=== PATIENT | female | born 1965 | race Caucasian/White ===

== ENCOUNTER → 2018-02-20 | Outpatient (CLI) | payer OTHER ==
[~2018-02-20] MED LIST: ACET325 PO; AMOX500 PO; Budeprion Sr150 MG; Clotrimazole AF30 GM TOP; FEXPSEER PO; FLONASE ALLERG9.9 ML; FURO20 PO; HYDR1TAB94 PO; LOSARTAN POTAS100 MG PO; METF500 PO; MONT10T PO; MUPI1NAS; NORT25 PO; Norco 5-325 Ta1 EACH PO; Omeprazole20 M1 PO; POTCHL10ER PO; POTCHL20ER PO; Percocet 5-3251 EACH PO; Prozac20 MG PO; Prozac40 MG PO; XARELTO10 MG PO; ZOLP5 PO
== END ==
LOC: LAB SHORT 08:10 → LAB 08:10
DX: N39.0 Urinary tract infection, site not specified (principal)
CPT/HCPCS: 87077; 87086; 87186

== ENCOUNTER 2018-05-23 17:05 | Emergency (ER) | payer OTHER ==
[~2018-05-23] VITALS: Ht 172.7 cm; Wt 136.1 kg
[2018-05-23 18:53] LABS: BASOPHILS ABSOLUTE AUTO 0.02 K/mm3 (0.00-0.23); BASOPHILS PERCENT AUTO 0 % (0-2); EOSINOPHILS ABSOLUTE AUTO 0.03 K/mm3 (0.00-0.68); EOSINOPHILS PERCENT AUTO 0 % (0-6); Hematocrit 42.6 % (33.0-51.0); Hemoglobin 14.6 g/dL (11.5-16.0); IMMATURE GRAN ABSOLUTE AUTO 0.05 K/mm3 (0.00-0.10); IMMATURE GRAN PERCENT AUTO 1 % (0-1); LYMPHOCYTES ABSOLUTE AUTO 0.78 K/mm3 (0.84-5.20); LYMPHOCYTES PERCENT AUTO 11 % (21-46); MONOCYTES ABSOLUTE AUTO 0.36 K/mm3 (0.16-1.47); MONOCYTES PERCENT AUTO 5 % (4-13); Mean Corpuscular HGB 29.1 pg (26.0-34.0); Mean Corpuscular HGB Conc 34.3 g/dL (31.5-36.5); Mean Corpuscular Volume 85 fL (80-100); Mean Platelet Volume 9.4 fL (9.1-12.4); NEUTROPHILS ABSOLUTE AUTO 6.19 K/mm3 (1.96-9.15); NEUTROPHILS PERCENT AUTO 83 % (41-73); Platelet Count 179 K/mm3 (150-400); RDW Coefficient Variation 12.8 % (11.7-14.2); RDW Standard Deviation 39.3 fL (35.1-46.3); Red Blood Cell Count 5.02 M/mm3 (3.80-5.20); White Blood Cell Count 7.43 K/mm3 (4.00-11.30)
[2018-05-23] MEDS ORDERED: ERGO400 PO (19:03)
[2018-05-23] MEDS ORDERED: FLUO10 PO (19:03)
[2018-05-23] MEDS ORDERED: AMLO10 PO (19:03)
[2018-05-23 19:12] LABS: Alanine Aminotransfer (ALT/SGP 49 U/L (12-78); Albumin, Blood 3.5 g/dL (3.4-5.0); Albumin/Globulin Ratio 0.8 (0.8-1.8); Alk Phos 86 U/L (50-136); Anion Gap 11 mmol/L (6-16); Aspartate Aminotrans (AST/SGOT 39 U/L (12-37); Bilirubin, Total 1.1 mg/dL (0.1-1.0); Blood Urea Nitrogen 20 mg/dL (8-24); Bun/Creatinine Ratio 24.4 (12.0-20.0); CO2, Blood 21 mmol/L (21-32); Calcium, Blood 8.9 mg/dL (8.5-10.1); Chloride, Blood 106 mmol/L (98-108); Creatinine, Blood 0.82 mg/dL (0.40-1.00); Globulin, Blood 4.6 g/dL (2.2-4.0); Glomerular Filtration Rate >60 (60-); Glucose, Blood 140 mg/dL (70-99); Potassium, Blood 3.9 mmol/L (3.5-5.5); Sodium, Blood 138 mmol/L (136-145); Total Protein, Blood 8.1 g/dL (6.4-8.2)
[2018-05-23 19:46] LABS: Source, Urine Clean Catch
[2018-05-23 19:59] LABS: Blood, Urine Neg (Neg); Glucose Qualitative, Urine Neg (Neg); Ketones, Urine 1+ (Neg); Leukocyte Esterase, Urine 2+ (Neg); Nitrite, Urine Neg (Neg); Protein, Urine 1+ (Neg); Specific Gravity, Urine 1.015 (1.003-1.022); Urobilinogen, Urine 2+ (Normal)
[2018-05-23] MEDS ORDERED: Lomotil Tablet1 EACH PO (20:20)
[2018-05-23] MEDS ORDERED: Zofran Odt8 MG SL (20:20)
[2018-05-23] MEDS ORDERED: Flagyl500 MG PO (20:20)
[2018-05-23 20:26] LABS: Appearance, Urine Hazy (Clear); Bilirubin, Urine 1+ (Neg); Color, Urine Yellow (P-Yellow)
[2018-05-23 20:49] LABS: Bacteria Few /hpf; Mucus Light (0-Heavy); Red Blood Cells, Urine Not Seen /hpf (0-2); Squamous Epithelial Cells Few /hpf (Few)
== END 2018-05-23 21:04 | disposition home or self-care (01) ==
LOC: ER 17:05
PROVIDERS: Emergency Medicine
DX: K52.9 Noninfective gastroenteritis and colitis, unspecified (principal); E66.01 Morbid (severe) obesity due to excess calories; I13.0 Hypertensive heart and chronic kidney disease with heart failure and stage 1 through stage 4 chronic kidney disease, or unspecified chronic kidney disease; I50.30 Unspecified diastolic (congestive) heart failure; N18.9 Chronic kidney disease, unspecified; J45.909 Unspecified asthma, uncomplicated
CPT/HCPCS: 36415; 80053; 81001; 83690; 85025; 87086; 96374; 99283-25; J2405

== ENCOUNTER 2019-01-06 09:45 | Day surgery (SDC) | payer OTHER ==
[~2019-01-06] VITALS: Ht 170.2 cm; Wt 141.5 kg
[~2019-01-06 09:45] MED LIST changes: +AMLO10 PO; +ERGO400 PO; +FLUO10 PO; +Flagyl500 MG PO; +Lomotil Tablet1 EACH PO; +Zofran Odt8 MG SL
[2019-01-06] MEDS ORDERED: CARV3.125 (10:31)
[2019-01-06] MEDS ORDERED: GLIP5 (10:32)
== END 2019-01-06 12:35 | disposition home or self-care (01) ==
LOC: ORSCSDS 09:45
PROVIDERS: Surgery
PROC: 0DBM8ZX Excision of Descending Colon, Via Natural or Artificial Opening Endoscopic, Diagnostic (ICD-10-PCS; principal; 2019-01-06 11:00)
PROC: 0DBP8ZX Excision of Rectum, Via Natural or Artificial Opening Endoscopic, Diagnostic (ICD-10-PCS; principal; 2019-01-06 11:00)
PROC: 0DBN8ZX Excision of Sigmoid Colon, Via Natural or Artificial Opening Endoscopic, Diagnostic (ICD-10-PCS; principal; 2019-01-06 11:00)
DX: Z12.11 Encounter for screening for malignant neoplasm of colon (principal); D12.4 Benign neoplasm of descending colon; K63.5 Polyp of colon; K62.1 Rectal polyp; Z86.010 Personal history of colon polyps; Z87.891 Personal history of nicotine dependence; I12.9 Hypertensive chronic kidney disease with stage 1 through stage 4 chronic kidney disease, or unspecified chronic kidney disease; E11.22 Type 2 diabetes mellitus with diabetic chronic kidney disease; N18.3 Chronic kidney disease, stage 3 (moderate); F32.9 Major depressive disorder, single episode, unspecified; G47.33 Obstructive sleep apnea (adult) (pediatric); Z79.84 Long term (current) use of oral hypoglycemic drugs; Z79.899 Other long term (current) drug therapy
CPT/HCPCS: 82947; 88305; J2704; J7120

== ENCOUNTER → 2020-05-18 | Outpatient (CLI) | payer OTHER ==
[~2020-05-18] MED LIST changes: +BUPR150ER PO; -Budeprion Sr150 MG; +CARV3.125; +GLIP5
== END | disposition home or self-care (01) ==
LOC: LAB SHORT 15:15 → LAB 15:15
DX: N39.0 Urinary tract infection, site not specified (principal)
CPT/HCPCS: 87077; 87086; 87186

== ENCOUNTER → 2020-11-23 | Outpatient (CLI) | payer OTHER ==
[2020-11-24 17:37] LABS: Appearance, Urine Clear (Clear); Bilirubin, Urine Neg (Neg); Blood, Urine Neg (Neg); Color, Urine Amber (P-Yellow); Glucose Qualitative, Urine 2+ (Neg); Ketones, Urine 1+ (Neg); Leukocyte Esterase, Urine 3+ (Neg); Nitrite, Urine Neg (Neg); Protein, Urine Neg (Neg); Specific Gravity, Urine 1.025 (1.003-1.022); Urobilinogen, Urine NORM (Normal)
[2020-11-24 18:05] LABS: Bacteria Mod /hpf; Red Blood Cells, Urine 0-2 /hpf (0-2); Squamous Epithelial Cells Few /hpf (Few); White Blood Cells, Urine 50-100 /hpf (0-5)
== END | disposition home or self-care (01) ==
LOC: LAB 16:30 → LAB SHORT 16:30
PROVIDERS: Family Medicine
DX: N39.0 Urinary tract infection, site not specified (principal)
CPT/HCPCS: 81001; 87077; 87086; 87186

== ENCOUNTER → 2021-03-18 | Outpatient (CLI) | payer OTHER | END | disposition home or self-care (01) | LOC: LAB 09:30 → LAB SHORT 09:30 | DX: R82.90 Unspecified abnormal findings in urine (principal) | CPT/HCPCS: 87086 ==

== ENCOUNTER → 2021-06-29 | Outpatient (CLI) | payer OTHER ==
[2021-06-29 14:03] LABS: Source, Urine Clean Catch
[2021-06-29 15:19] LABS: Appearance, Urine Cloudy (Clear); Bilirubin, Urine Neg (Neg); Blood, Urine 1+ (Neg); Color, Urine Yellow (P-Yellow); Glucose Qualitative, Urine Neg (Neg); Ketones, Urine Neg (Neg); Leukocyte Esterase, Urine 3+ (Neg); Nitrite, Urine Pos (Neg); Protein, Urine 2+ (Neg); Specific Gravity, Urine 1.025 (1.003-1.022); Urobilinogen, Urine NORM (Normal)
[2021-06-29 16:18] LABS: Bacteria Many /hpf; Calcium Oxalate Crystals Few /hpf; Red Blood Cells, Urine 0-2 /hpf (0-2); Squamous Epithelial Cells Rare /hpf (Few); White Blood Cells, Urine Rare /hpf (0-5)
== END | disposition home or self-care (01) ==
LOC: LAB SHORT 14:01 → LAB 14:01
PROVIDERS: Internal Medicine
DX: R35.0 Frequency of micturition (principal)
CPT/HCPCS: 81001; 87077; 87086; 87186

== ENCOUNTER 2021-11-02 15:37 | Emergency (ER) | payer OTHER ==
[~2021-11-02] VITALS: Ht 172.7 cm; Wt 147.4 kg
[2021-11-02 16:21] LABS: BASOPHILS ABSOLUTE AUTO 0.02 K/mm3 (0.00-0.23); BASOPHILS PERCENT AUTO 0 % (0-2); EOSINOPHILS ABSOLUTE AUTO 0.04 K/mm3 (0.00-0.68); EOSINOPHILS PERCENT AUTO 1 % (0-6); Hematocrit 23.4 % (33.0-51.0); IMMATURE GRAN ABSOLUTE AUTO 0.02 K/mm3 (0.00-0.10); IMMATURE GRAN PERCENT AUTO 0 % (0-1); LYMPHOCYTES ABSOLUTE AUTO 0.85 K/mm3 (0.84-5.20); LYMPHOCYTES PERCENT AUTO 18 % (21-46); MONOCYTES ABSOLUTE AUTO 0.45 K/mm3 (0.16-1.47); MONOCYTES PERCENT AUTO 10 % (4-13); Mean Corpuscular HGB 23.6 pg (26.0-34.0); Mean Corpuscular HGB Conc 29.9 g/dL (31.5-36.5); Mean Corpuscular Volume 79 fL (80-100); Mean Platelet Volume 9.7 fL (9.1-12.4); NEUTROPHILS ABSOLUTE AUTO 3.37 K/mm3 (1.96-9.15); NEUTROPHILS PERCENT AUTO 71 % (41-73); Platelet Count 165 K/mm3 (150-400); RDW Coefficient Variation 15.3 % (11.7-14.2); RDW Standard Deviation 44.1 fL (35.1-46.3); Red Blood Cell Count 2.96 M/mm3 (3.80-5.20); White Blood Cell Count 4.75 K/mm3 (4.00-11.30)
[2021-11-02 16:32] LABS: Albumin, Blood 3.2 g/dL (3.4-5.0); Albumin/Globulin Ratio 0.8 (0.8-1.8); Bilirubin, Total 0.5 mg/dL (0.1-1.0); Calcium, Blood 8.8 mg/dL (8.5-10.1); Creatinine, Blood 1.11 mg/dL (0.40-1.00); Globulin, Blood 3.9 g/dL (2.2-4.0); Potassium, Blood 3.8 mmol/L (3.5-5.5); Total Protein, Blood 7.1 g/dL (6.4-8.2)
[2021-11-02 16:33] LABS: Percent Saturation 3.5 % (15.0-50.0)
[2021-11-02] MEDS ORDERED: HUMALOG KW100 UNIT/1 SC (18:39)
[2021-11-02] MEDS ORDERED: BASAGLAR K100 UNIT/1 SC (18:40)
== END 2021-11-02 22:05 | disposition home or self-care (01) ==
LOC: ER 15:37
PROVIDERS: Physician Assistant
DX: D64.9 Anemia, unspecified (principal); I13.0 Hypertensive heart and chronic kidney disease with heart failure and stage 1 through stage 4 chronic kidney disease, or unspecified chronic kidney disease; N18.9 Chronic kidney disease, unspecified; I50.30 Unspecified diastolic (congestive) heart failure; Z87.891 Personal history of nicotine dependence; E11.22 Type 2 diabetes mellitus with diabetic chronic kidney disease; Z79.84 Long term (current) use of oral hypoglycemic drugs; Z79.899 Other long term (current) drug therapy; Z91.040 Latex allergy status; Z88.8 Allergy status to other drugs, medicaments and biological substances; Z88.5 Allergy status to narcotic agent; Z91.013 Allergy to seafood
CPT/HCPCS: 36415; 36430; 80053; 83540; 83550; 85025; 86850; 86900; 86901; 86923; 96365; 99284-25; J1750; J7030; P9016

== ENCOUNTER 2021-11-08 19:27 | Emergency (ER) | payer OTHER ==
[~2021-11-08] VITALS: Ht 172.7 cm; Wt 147.4 kg
[~2021-11-08 19:27] MED LIST changes: +BASAGLAR K100 UNIT/1 SC; -CARV3.125; +CARV3.125 PO; -GLIP5; +GLIP5 PO; +HUMALOG KW100 UNIT/1 SC
[2021-11-08 20:03] LABS: BASOPHILS ABSOLUTE AUTO 0.02 K/mm3 (0.00-0.23); BASOPHILS PERCENT AUTO 0 % (0-2); EOSINOPHILS ABSOLUTE AUTO 0.03 K/mm3 (0.00-0.68); EOSINOPHILS PERCENT AUTO 1 % (0-6); Hemoglobin 7.5 g/dL (11.5-16.0); IMMATURE GRAN ABSOLUTE AUTO 0.02 K/mm3 (0.00-0.10); IMMATURE GRAN PERCENT AUTO 0 % (0-1); LYMPHOCYTES ABSOLUTE AUTO 0.86 K/mm3 (0.84-5.20); LYMPHOCYTES PERCENT AUTO 17 % (21-46); MONOCYTES ABSOLUTE AUTO 0.52 K/mm3 (0.16-1.47); MONOCYTES PERCENT AUTO 11 % (4-13); Mean Corpuscular HGB 23.6 pg (26.0-34.0); Mean Corpuscular Volume 79 fL (80-100); Mean Platelet Volume 10.1 fL (9.1-12.4); NEUTROPHILS ABSOLUTE AUTO 3.49 K/mm3 (1.96-9.15); NEUTROPHILS PERCENT AUTO 71 % (41-73); Platelet Count 167 K/mm3 (150-400); RDW Coefficient Variation 16.2 % (11.7-14.2); RDW Standard Deviation 46.7 fL (35.1-46.3); Red Blood Cell Count 3.18 M/mm3 (3.80-5.20); White Blood Cell Count 4.94 K/mm3 (4.00-11.30)
[2021-11-08 20:35] LABS: Albumin, Blood 3.1 g/dL (3.4-5.0); Albumin/Globulin Ratio 0.8 (0.8-1.8); Bilirubin, Total 0.5 mg/dL (0.1-1.0); Calcium, Blood 8.8 mg/dL (8.5-10.1); Creatinine, Blood 1.09 mg/dL (0.40-1.00); Globulin, Blood 4.1 g/dL (2.2-4.0); Potassium, Blood 3.7 mmol/L (3.5-5.5); Total Protein, Blood 7.2 g/dL (6.4-8.2)
== END 2021-11-08 21:32 | disposition home or self-care (01) ==
LOC: ER 19:27
PROVIDERS: Physician Assistant
DX: D50.9 Iron deficiency anemia, unspecified (principal); E11.22 Type 2 diabetes mellitus with diabetic chronic kidney disease; I13.0 Hypertensive heart and chronic kidney disease with heart failure and stage 1 through stage 4 chronic kidney disease, or unspecified chronic kidney disease; N18.9 Chronic kidney disease, unspecified; I50.30 Unspecified diastolic (congestive) heart failure; Z87.891 Personal history of nicotine dependence; Z79.899 Other long term (current) drug therapy; Z91.040 Latex allergy status; Z88.2 Allergy status to sulfonamides; Z88.8 Allergy status to other drugs, medicaments and biological substances
CPT/HCPCS: 36415; 80053; 82272; 85025; 86850; 86900; 86901; 99285

== ENCOUNTER 2021-11-16 00:15 | Day surgery (SDC) | payer OTHER ==
[2021-11-14 15:20] LABS: BASOPHILS ABSOLUTE AUTO 0.02 K/mm3 (0.00-0.23); BASOPHILS PERCENT AUTO 1 % (0-2); EOSINOPHILS ABSOLUTE AUTO 0.05 K/mm3 (0.00-0.68); EOSINOPHILS PERCENT AUTO 1 % (0-6); Hematocrit 26.4 % (33.0-51.0); Hemoglobin 7.7 g/dL (11.5-16.0); IMMATURE GRAN ABSOLUTE AUTO 0.01 K/mm3 (0.00-0.10); IMMATURE GRAN PERCENT AUTO 0 % (0-1); LYMPHOCYTES ABSOLUTE AUTO 0.75 K/mm3 (0.84-5.20); LYMPHOCYTES PERCENT AUTO 18 % (21-46); MONOCYTES ABSOLUTE AUTO 0.42 K/mm3 (0.16-1.47); MONOCYTES PERCENT AUTO 10 % (4-13); Mean Corpuscular HGB 22.9 pg (26.0-34.0); Mean Corpuscular HGB Conc 29.2 g/dL (31.5-36.5); Mean Corpuscular Volume 79 fL (80-100); Mean Platelet Volume 9.8 fL (9.1-12.4); NEUTROPHILS ABSOLUTE AUTO 2.86 K/mm3 (1.96-9.15); NEUTROPHILS PERCENT AUTO 70 % (41-73); Platelet Count 162 K/mm3 (150-400); RDW Coefficient Variation 17.2 % (11.7-14.2); RDW Standard Deviation 49.1 fL (35.1-46.3); Red Blood Cell Count 3.36 M/mm3 (3.80-5.20); White Blood Cell Count 4.11 K/mm3 (4.00-11.30)
== END 2021-11-16 09:40 | disposition home or self-care (01) ==
LOC: ATC 00:15
PROVIDERS: Family Medicine
DX: D50.9 Iron deficiency anemia, unspecified (principal); I48.91 Unspecified atrial fibrillation; K74.60 Unspecified cirrhosis of liver
CPT/HCPCS: 36430; 85025; 86850; 86900; 86901; 86923; 96365; J2916; J7050; P9016

== ENCOUNTER 2021-11-19 08:55 | Day surgery (SDC) | payer OTHER | END 2021-11-19 10:10 | disposition home or self-care (01) | LOC: ATC 08:55 | DX: D50.9 Iron deficiency anemia, unspecified (principal); I13.0 Hypertensive heart and chronic kidney disease with heart failure and stage 1 through stage 4 chronic kidney disease, or unspecified chronic kidney disease; E11.22 Type 2 diabetes mellitus with diabetic chronic kidney disease; N18.9 Chronic kidney disease, unspecified; I50.30 Unspecified diastolic (congestive) heart failure; J45.909 Unspecified asthma, uncomplicated; Z87.891 Personal history of nicotine dependence; Z79.84 Long term (current) use of oral hypoglycemic drugs; Z88.8 Allergy status to other drugs, medicaments and biological substances; Z88.6 Allergy status to analgesic agent; Z91.040 Latex allergy status; Z88.5 Allergy status to narcotic agent; Z91.013 Allergy to seafood | CPT/HCPCS: J2916 ==

== ENCOUNTER 2021-11-24 02:46 | Day surgery (SDC) | payer OTHER ==
[~2021-11-24 02:46] MED LIST changes: +OMEP20ER PO; -Omeprazole20 M1 PO
[2021-11-30] MEDS ORDERED: ALBU90OI INH (10:42)
[2021-11-30] MEDS ORDERED: Amlodipine Bes2.5 MG PO (10:43)
[2021-11-30] MEDS ORDERED: VITAMIN B125000 MC1 PO (10:44)
[2021-11-30] MEDS ORDERED: BECL25NI INH (10:44)
[2021-11-30] MEDS ORDERED: ATOR10 PO (10:44)
[2021-11-30] MEDS ORDERED: AMOX500 PO (10:44)
[2021-11-30] MEDS ORDERED: FERSU300 PO (10:45)
[2021-11-30] MEDS ORDERED: INSULANPEN SC (10:45)
[2021-11-30] MEDS ORDERED: DOCU100 PO (10:45)
[2021-11-30] MEDS ORDERED: HUMALOG KW200 UNIT/2 SC (10:46)
[2021-11-30] MEDS ORDERED: LOSA50 PO (10:47)
[2021-11-30] MEDS ORDERED: XARELTO20 MG PO (10:51)
[2021-12-25] MEDS ORDERED: CEPH500 PO (05:12)
[2021-12-25] MEDS ORDERED: SULTRIDS PO (05:12)
[2021-12-25] MEDS ORDERED: Cleocin HCl150 MG PO (05:25)
[2022-01-16] MEDS ORDERED: AMLO5 PO ×2 (15:19)
[2022-01-16] MEDS ORDERED: ATOR10 PO (15:20)
[2022-01-16] MEDS ORDERED: METF500 PO (15:21)
[2022-01-16] MEDS ORDERED: VITAMIN D3 PO (15:23)
[2022-01-16] MEDS ORDERED: Flonase 0.05% N16 GM (15:24)
[2022-01-16] MEDS ORDERED: FURO20 PO (15:24)
[2022-01-16] MEDS ORDERED: INSULANPEN SC (15:25)
[2022-01-16] MEDS ORDERED: GLUCOTROL5 MG PO (15:25)
[2022-01-16] MEDS ORDERED: HUMALOG100 UNIT/1 SC (15:26)
[2022-01-18] MEDS ORDERED: LOSA25 PO (10:05)
== END 2021-11-24 15:22 | disposition home or self-care (01) ==
LOC: ATC 02:46
DX: D50.9 Iron deficiency anemia, unspecified (principal); I13.0 Hypertensive heart and chronic kidney disease with heart failure and stage 1 through stage 4 chronic kidney disease, or unspecified chronic kidney disease; I50.30 Unspecified diastolic (congestive) heart failure; E11.22 Type 2 diabetes mellitus with diabetic chronic kidney disease; N18.9 Chronic kidney disease, unspecified; D63.1 Anemia in chronic kidney disease; J45.909 Unspecified asthma, uncomplicated; Z87.891 Personal history of nicotine dependence; Z79.4 Long term (current) use of insulin
CPT/HCPCS: 96365; J2916

== ENCOUNTER 2022-01-01 01:00 | Day surgery (SDC) | payer OTHER ==
[~2022-01-01 01:00] MED LIST changes: +ALBU90OI INH; +ATOR10 PO; +Amlodipine Bes2.5 MG PO; +BECL25NI INH; +CEPH500 PO; +Cleocin HCl150 MG PO; +DOCU100 PO; +FERSU300 PO; +HUMALOG KW200 UNIT/2 SC; +INSULANPEN SC; +LOSA50 PO; +SULTRIDS PO; +VITAMIN B125000 MC1 PO; +XARELTO20 MG PO
[2022-01-01] MEDS ORDERED: BUME2 PO (13:26)
== END 2022-01-01 14:50 | disposition home or self-care (01) ==
LOC: ATC 01:00
DX: D50.9 Iron deficiency anemia, unspecified (principal); I48.91 Unspecified atrial fibrillation; K74.60 Unspecified cirrhosis of liver; N18.9 Chronic kidney disease, unspecified; E11.22 Type 2 diabetes mellitus with diabetic chronic kidney disease; I13.0 Hypertensive heart and chronic kidney disease with heart failure and stage 1 through stage 4 chronic kidney disease, or unspecified chronic kidney disease; I50.32 Chronic diastolic (congestive) heart failure; J45.909 Unspecified asthma, uncomplicated; Z98.84 Bariatric surgery status; Z88.6 Allergy status to analgesic agent; Z88.5 Allergy status to narcotic agent; Z88.8 Allergy status to other drugs, medicaments and biological substances; Z91.040 Latex allergy status; Z91.013 Allergy to seafood; Z87.891 Personal history of nicotine dependence
CPT/HCPCS: 36415; 36430; 86850; 86900; 86901; 86923; J7040; P9016

== ENCOUNTER 2022-01-08 01:11 | Day surgery (SDC) | payer OTHER ==
[~2022-01-08 01:11] MED LIST changes: +BUME2 PO
--- NOTE | 2022-01-08 09:00 | NUR ---
ANA BLOOD FROM [facility]. DISCARDED 5CC OF BLOOD AND WITHDREW 7CC FOR LABS.
[2022-01-08 10:13] LABS: BASOPHILS ABSOLUTE AUTO 0.02 K/mm3 (0.00-0.23); BASOPHILS PERCENT AUTO 0 % (0-2); EOSINOPHILS ABSOLUTE AUTO 0.08 K/mm3 (0.00-0.68); EOSINOPHILS PERCENT AUTO 2 % (0-6); Hematocrit 28.9 % (33.0-51.0); Hemoglobin 8.8 g/dL (11.5-16.0); IMMATURE GRAN ABSOLUTE AUTO 0.03 K/mm3 (0.00-0.10); IMMATURE GRAN PERCENT AUTO 1 % (0-1); LYMPHOCYTES PERCENT AUTO 20 % (21-46); MONOCYTES ABSOLUTE AUTO 0.58 K/mm3 (0.16-1.47); MONOCYTES PERCENT AUTO 12 % (4-13); Mean Corpuscular HGB 23.3 pg (26.0-34.0); Mean Corpuscular HGB Conc 30.4 g/dL (31.5-36.5); Mean Corpuscular Volume 77 fL (80-100); Mean Platelet Volume 9.7 fL (9.1-12.4); NEUTROPHILS PERCENT AUTO 66 % (41-73); Platelet Count 159 K/mm3 (150-400); RDW Coefficient Variation 18.7 % (11.7-14.2); RDW Standard Deviation 52.3 fL (35.1-46.3); Red Blood Cell Count 3.77 M/mm3 (3.80-5.20); White Blood Cell Count 5.01 K/mm3 (4.00-11.30)
== END 2022-01-08 10:10 | disposition home or self-care (01) ==
LOC: ATC 01:11
PROVIDERS: Family Medicine
DX: D50.9 Iron deficiency anemia, unspecified (principal); I12.9 Hypertensive chronic kidney disease with stage 1 through stage 4 chronic kidney disease, or unspecified chronic kidney disease; N18.31 Chronic kidney disease, stage 3a; D63.1 Anemia in chronic kidney disease; E78.5 Hyperlipidemia, unspecified; E11.22 Type 2 diabetes mellitus with diabetic chronic kidney disease; G47.33 Obstructive sleep apnea (adult) (pediatric); E66.01 Morbid (severe) obesity due to excess calories; K21.9 Gastro-esophageal reflux disease without esophagitis; K75.81 Nonalcoholic steatohepatitis (NASH); K74.60 Unspecified cirrhosis of liver; R18.8 Other ascites; K76.6 Portal hypertension; K31.89 Other diseases of stomach and duodenum; I48.91 Unspecified atrial fibrillation; Z98.84 Bariatric surgery status; Z79.01 Long term (current) use of anticoagulants
CPT/HCPCS: 85025; J2916

== ENCOUNTER → 2022-01-09 | Outpatient (CLI) | payer OTHER ==
[2022-01-09 16:30] LABS: Appearance, Urine Hazy (Clear); Bilirubin, Urine Neg (Neg); Blood, Urine 1+ (Neg); Color, Urine Yellow (P-Yellow); Glucose Qualitative, Urine Neg (Neg); Ketones, Urine Neg (Neg); Leukocyte Esterase, Urine 3+ (Neg); Nitrite, Urine Neg (Neg); Protein, Urine Neg (Neg); Specific Gravity, Urine 1.015 (1.003-1.022); Urobilinogen, Urine NORM (Normal)
[2022-01-09 16:54] LABS: Renal Epithelial Rare /hpf (0-Rare); Squamous Epithelial Cells Many /hpf (Few); Transitional Epithelial Cells Few /hpf (0-Rare)
[2022-01-09 16:55] LABS: Bacteria Many /hpf; White Blood Cells, Urine 25-50 /hpf (0-5)
== END ==
LOC: LAB SHORT 14:00 → LAB 14:00
PROVIDERS: Nurse Practitioner Family
DX: N39.0 Urinary tract infection, site not specified (principal)
CPT/HCPCS: 81001

== ENCOUNTER 2022-01-12 00:14 | Day surgery (SDC) | payer OTHER | END 2022-01-12 09:33 | disposition home or self-care (01) | LOC: ATC 00:14 | DX: D50.9 Iron deficiency anemia, unspecified (principal); I12.9 Hypertensive chronic kidney disease with stage 1 through stage 4 chronic kidney disease, or unspecified chronic kidney disease; N18.9 Chronic kidney disease, unspecified; D63.1 Anemia in chronic kidney disease; K75.81 Nonalcoholic steatohepatitis (NASH); R18.8 Other ascites; K76.6 Portal hypertension; K31.89 Other diseases of stomach and duodenum; E11.22 Type 2 diabetes mellitus with diabetic chronic kidney disease; I48.91 Unspecified atrial fibrillation; Z79.4 Long term (current) use of insulin; Z79.899 Other long term (current) drug therapy; Z87.891 Personal history of nicotine dependence | CPT/HCPCS: 96365; J2916 ==

== ENCOUNTER 2022-01-15 01:43 | Day surgery (SDC) | payer OTHER ==
--- NOTE | 2022-01-15 08:20 | NUR ---
POWERGLIDE NOT DRAWING BACK BLOOD. PERIPHERAL DRAW FOR TODAY'S LABS.
[2022-01-15 08:59] LABS: BASOPHILS ABSOLUTE AUTO 0.02 K/mm3 (0.00-0.23); BASOPHILS PERCENT AUTO 0 % (0-2); EOSINOPHILS ABSOLUTE AUTO 0.08 K/mm3 (0.00-0.68); EOSINOPHILS PERCENT AUTO 2 % (0-6); IMMATURE GRAN ABSOLUTE AUTO 0.02 K/mm3 (0.00-0.10); IMMATURE GRAN PERCENT AUTO 0 % (0-1); LYMPHOCYTES ABSOLUTE AUTO 0.81 K/mm3 (0.84-5.20); LYMPHOCYTES PERCENT AUTO 17 % (21-46); MONOCYTES ABSOLUTE AUTO 0.51 K/mm3 (0.16-1.47); MONOCYTES PERCENT AUTO 11 % (4-13); Mean Corpuscular HGB 23.4 pg (26.0-34.0); Mean Corpuscular Volume 78 fL (80-100); Mean Platelet Volume 9.7 fL (9.1-12.4); NEUTROPHILS ABSOLUTE AUTO 3.34 K/mm3 (1.96-9.15); NEUTROPHILS PERCENT AUTO 70 % (41-73); Platelet Count 134 K/mm3 (150-400); RDW Coefficient Variation 19.1 % (11.7-14.2); RDW Standard Deviation 54.2 fL (35.1-46.3); Red Blood Cell Count 3.85 M/mm3 (3.80-5.20); White Blood Cell Count 4.78 K/mm3 (4.00-11.30)
[2022-01-16] MEDS ORDERED: AMLO5 PO ×2 (15:19)
[2022-01-16] MEDS ORDERED: ATOR10 PO (15:20)
[2022-01-16] MEDS ORDERED: METF500 PO (15:21)
[2022-01-16] MEDS ORDERED: VITAMIN D3 PO (15:23)
[2022-01-16] MEDS ORDERED: FURO20 PO (15:24)
[2022-01-16] MEDS ORDERED: Flonase 0.05% N16 GM (15:24)
[2022-01-16] MEDS ORDERED: GLUCOTROL5 MG PO (15:25)
[2022-01-16] MEDS ORDERED: INSULANPEN SC (15:25)
[2022-01-16] MEDS ORDERED: HUMALOG100 UNIT/1 SC (15:26)
== END 2022-01-15 09:09 | disposition home or self-care (01) ==
LOC: ATC 01:43
PROVIDERS: Family Medicine
DX: I12.9 Hypertensive chronic kidney disease with stage 1 through stage 4 chronic kidney disease, or unspecified chronic kidney disease (principal); E11.22 Type 2 diabetes mellitus with diabetic chronic kidney disease; N18.31 Chronic kidney disease, stage 3a; D63.1 Anemia in chronic kidney disease; D50.9 Iron deficiency anemia, unspecified; G47.33 Obstructive sleep apnea (adult) (pediatric); K21.9 Gastro-esophageal reflux disease without esophagitis; I48.91 Unspecified atrial fibrillation; Z79.01 Long term (current) use of anticoagulants; Z79.4 Long term (current) use of insulin
CPT/HCPCS: 85025; J2916

== ENCOUNTER 2022-01-19 07:49 | Day surgery (SDC) | payer OTHER ==
[~2022-01-19] VITALS: Ht 172.7 cm; Wt 146.8 kg
[~2022-01-19 07:49] MED LIST changes: +AMLO5 PO; +Flonase 0.05% N16 GM; +GLUCOTROL5 MG PO; +HUMALOG100 UNIT/1 SC; +LOSA25 PO; +VITAMIN D3 PO
[2022-01-19] MEDS ORDERED: BUME2 PO (08:07)
--- NOTE | 2022-01-19 09:27 | NUR ---
01/19/22 0927 Lanie Rodriguez History, Chart, Medications and Allergies reviewed before start of procedure. Patient confirms NPO status and agrees with scheduled surgery. 3-LEAD EKG REVIEWED WITH PHYSICIAN PRIOR TO START OF PROCEDURE. MONITOR INTACT WITH CONTINUOUS PULSE OXIMETRY AND INTERMITTENT BP. Bite Block Placed. DR. SEYMOUR PROVIDING ANESTHESIA CARE, SEE RECORD.
--- NOTE | 2022-01-19 10:06 | NUR ---
REPORT FROM MIKIE HAYS RN. PT AXOX4, ABLE TO REPOSITION IN BED, TOLERATING PO FLUIDS AND FOOD. PT EMOTIONAL POST PROCEDURE, SUPPORT PROVIDED THROUGH LISTENING AND TALKING WITH PATIENT.
--- NOTE | 2022-01-19 10:29 | NUR ---
Patient up to Ambulate independently. Gait steady. Discharge instructions reviewed with patient. Patient verbalizes understanding. Copy given to patient to take home. Patient States Post-Procedure ride home has been arranged. Discharged via wheelchair to private car for ride home. ALL BELONGINGS RETURNED TO PATIENT.
== END 2022-01-19 23:01 | disposition home or self-care (01) ==
LOC: ORSCMMR 07:49 → ORD 09:30 → ORSCMMR 09:30
PROVIDERS: Student in an Organized Health Care Education/Training Program
PROC: 0D568ZZ Destruction of Stomach, Via Natural or Artificial Opening Endoscopic (ICD-10-PCS; principal; 2022-01-19 09:30)
DX: D50.9 Iron deficiency anemia, unspecified (principal); K74.60 Unspecified cirrhosis of liver; K31.811 Angiodysplasia of stomach and duodenum with bleeding; I85.00 Esophageal varices without bleeding; K76.6 Portal hypertension; K31.89 Other diseases of stomach and duodenum; I48.91 Unspecified atrial fibrillation; I10 Essential (primary) hypertension; E11.9 Type 2 diabetes mellitus without complications; K21.9 Gastro-esophageal reflux disease without esophagitis; G47.33 Obstructive sleep apnea (adult) (pediatric); E66.01 Morbid (severe) obesity due to excess calories; Z68.42 Body mass index [BMI] 45.0-49.9, adult; F32.A Depression, unspecified; F41.9 Anxiety disorder, unspecified; Z79.84 Long term (current) use of oral hypoglycemic drugs; Z79.899 Other long term (current) drug therapy
CPT/HCPCS: 82947; J2001; J2704; J7120

== ENCOUNTER 2022-01-20 02:19 | Day surgery (SDC) | payer OTHER | END 2022-01-20 09:00 | disposition home or self-care (01) | LOC: ATC 02:19 | DX: D50.9 Iron deficiency anemia, unspecified (principal); N18.9 Chronic kidney disease, unspecified; D63.1 Anemia in chronic kidney disease | CPT/HCPCS: J2916 ==

== ENCOUNTER 2022-01-22 01:06 | Day surgery (SDC) | payer OTHER ==
[2022-01-22 09:50] LABS: BASOPHILS ABSOLUTE AUTO 0.04 K/mm3 (0.00-0.23); BASOPHILS PERCENT AUTO 1 % (0-2); EOSINOPHILS ABSOLUTE AUTO 0.08 K/mm3 (0.00-0.68); EOSINOPHILS PERCENT AUTO 2 % (0-6); Hematocrit 33.7 % (33.0-51.0); Hemoglobin 10.4 g/dL (11.5-16.0); IMMATURE GRAN ABSOLUTE AUTO 0.03 K/mm3 (0.00-0.10); IMMATURE GRAN PERCENT AUTO 1 % (0-1); LYMPHOCYTES ABSOLUTE AUTO 1.11 K/mm3 (0.84-5.20); LYMPHOCYTES PERCENT AUTO 21 % (21-46); MONOCYTES ABSOLUTE AUTO 0.51 K/mm3 (0.16-1.47); MONOCYTES PERCENT AUTO 10 % (4-13); Mean Corpuscular HGB 23.9 pg (26.0-34.0); Mean Corpuscular HGB Conc 30.9 g/dL (31.5-36.5); Mean Corpuscular Volume 77 fL (80-100); NEUTROPHILS ABSOLUTE AUTO 3.46 K/mm3 (1.96-9.15); NEUTROPHILS PERCENT AUTO 66 % (41-73); RDW Coefficient Variation 19.9 % (11.7-14.2); Red Blood Cell Count 4.36 M/mm3 (3.80-5.20); White Blood Cell Count 5.23 K/mm3 (4.00-11.30)
--- NOTE | 2022-01-22 10:42 | NUR ---
LABS DRAWN FROM RIGHT FOREARM USING 22 GAUGE BUTTERFLY NEEDLE PER HOSPITAL PROTOCOL
== END 2022-01-22 10:08 | disposition home or self-care (01) ==
LOC: ATC 01:06
PROVIDERS: Family Medicine
DX: D50.9 Iron deficiency anemia, unspecified (principal); I12.9 Hypertensive chronic kidney disease with stage 1 through stage 4 chronic kidney disease, or unspecified chronic kidney disease; N18.31 Chronic kidney disease, stage 3a; E11.22 Type 2 diabetes mellitus with diabetic chronic kidney disease; D63.1 Anemia in chronic kidney disease; I48.91 Unspecified atrial fibrillation; K21.9 Gastro-esophageal reflux disease without esophagitis; G47.33 Obstructive sleep apnea (adult) (pediatric); Z87.891 Personal history of nicotine dependence; Z91.040 Latex allergy status; Z91.013 Allergy to seafood; Z88.5 Allergy status to narcotic agent; Z88.2 Allergy status to sulfonamides; Z88.8 Allergy status to other drugs, medicaments and biological substances; Z79.01 Long term (current) use of anticoagulants; Z79.4 Long term (current) use of insulin; Z79.899 Other long term (current) drug therapy
CPT/HCPCS: 85025; 96365; J2916

== ENCOUNTER 2022-01-26 01:01 | Day surgery (SDC) | payer OTHER | END 2022-01-26 09:51 | disposition home or self-care (01) | LOC: ATC 01:01 | DX: D50.9 Iron deficiency anemia, unspecified (principal); N18.9 Chronic kidney disease, unspecified; D63.1 Anemia in chronic kidney disease | CPT/HCPCS: J2916 ==

== ENCOUNTER → 2022-08-21 | Outpatient (CLI) | payer OTHER ==
[2022-08-21 10:50] LABS: Source, Urine Clean Catch
[2022-08-21 12:01] LABS: Hematocrit 29.2 % (33.0-51.0); Hemoglobin 8.8 g/dL (11.5-16.0); Mean Corpuscular HGB 23.3 pg (26.0-34.0); Mean Corpuscular HGB Conc 30.1 g/dL (31.5-36.5); Mean Corpuscular Volume 78 fL (80-100); Mean Platelet Volume 10.1 fL (9.1-12.4); Platelet Count 144 K/mm3 (150-400); RDW Coefficient Variation 15.5 % (11.7-14.2); RDW Standard Deviation 42.8 fL (35.1-46.3); Red Blood Cell Count 3.77 M/mm3 (3.80-5.20); White Blood Cell Count 3.63 K/mm3 (4.00-11.30)
[2022-08-21 12:21] LABS: Albumin, Blood 2.6 g/dL (3.4-5.0); Albumin/Globulin Ratio 0.8 (0.8-1.8); Bilirubin, Total 1.3 mg/dL (0.1-1.0); Bun/Creatinine Ratio 19.3 (12.0-20.0); Calcium, Blood 8.7 mg/dL (8.5-10.1); Creatinine, Blood 1.09 mg/dL (0.40-1.00); Globulin, Blood 3.4 g/dL (2.2-4.0); Potassium, Blood 3.3 mmol/L (3.5-5.5)
[2022-08-21 13:22] LABS: Appearance, Urine Cloudy (Clear); Bilirubin, Urine Neg (Neg); Blood, Urine 1+ (Neg); Color, Urine Yellow (P-Yellow); Glucose Qualitative, Urine 4+ (Neg); Ketones, Urine Neg (Neg); Leukocyte Esterase, Urine 1+ (Neg); Nitrite, Urine Neg (Neg); Protein, Urine Neg (Neg); Urobilinogen, Urine 1+ (Normal)
[2022-08-21 13:47] LABS: Bacteria Many /hpf; Red Blood Cells, Urine 0-2 /hpf (0-2); Squamous Epithelial Cells Mod /hpf (Few)
== END | disposition home or self-care (01) ==
LOC: LAB SHORT 10:48 → LAB FUT 08-21 09:55
PROVIDERS: Family Medicine
DX: R53.83 Other fatigue (principal); R53.1 Weakness; R74.9 Abnormal serum enzyme level, unspecified
CPT/HCPCS: 36415; 80053; 81001; 83615; 85027; 87086

== ENCOUNTER 2022-08-30 | Emergency (ER) | payer OTHER ==
[~2022-08-30] VITALS: Ht 172.7 cm; Wt 145.2 kg
[2022-08-30 00:39] LABS: BASOPHILS ABSOLUTE AUTO 0.05 K/mm3 (0.00-0.23); BASOPHILS PERCENT AUTO 1 % (0-2); EOSINOPHILS PERCENT AUTO 3 % (0-6); Hematocrit 28.3 % (33.0-51.0); Hemoglobin 8.8 g/dL (11.5-16.0); IMMATURE GRAN ABSOLUTE AUTO 0.02 K/mm3 (0.00-0.10); IMMATURE GRAN PERCENT AUTO 0 % (0-1); LYMPHOCYTES ABSOLUTE AUTO 1.07 K/mm3 (0.84-5.20); LYMPHOCYTES PERCENT AUTO 17 % (21-46); MONOCYTES ABSOLUTE AUTO 1.04 K/mm3 (0.16-1.47); MONOCYTES PERCENT AUTO 17 % (4-13); Mean Corpuscular HGB 23.8 pg (26.0-34.0); Mean Corpuscular HGB Conc 31.1 g/dL (31.5-36.5); Mean Corpuscular Volume 77 fL (80-100); Mean Platelet Volume 10.6 fL (9.1-12.4); NEUTROPHILS ABSOLUTE AUTO 3.91 K/mm3 (1.96-9.15); NEUTROPHILS PERCENT AUTO 62 % (41-73); Platelet Count 183 K/mm3 (150-400); RDW Coefficient Variation 16.5 % (11.7-14.2); RDW Standard Deviation 45.4 fL (35.1-46.3); White Blood Cell Count 6.29 K/mm3 (4.00-11.30)
[2022-08-30 00:58] LABS: Albumin, Blood 2.7 g/dL (3.4-5.0); Albumin/Globulin Ratio 0.7 (0.8-1.8); Bilirubin, Total 1.5 mg/dL (0.1-1.0); Bun/Creatinine Ratio 17.6 (12.0-20.0); Calcium, Blood 9.1 mg/dL (8.5-10.1); Creatinine, Blood 1.36 mg/dL (0.40-1.00); Potassium, Blood 3.6 mmol/L (3.5-5.5); Total Protein, Blood 6.7 g/dL (6.4-8.2)
== END 2022-08-30 05:01 | disposition home or self-care (01) ==
LOC: ER
PROVIDERS: Physician Assistant
DX: E87.20 Acidosis, unspecified (principal); D64.9 Anemia, unspecified; I13.0 Hypertensive heart and chronic kidney disease with heart failure and stage 1 through stage 4 chronic kidney disease, or unspecified chronic kidney disease; E11.22 Type 2 diabetes mellitus with diabetic chronic kidney disease; I50.30 Unspecified diastolic (congestive) heart failure; N18.9 Chronic kidney disease, unspecified; J45.909 Unspecified asthma, uncomplicated; Z79.899 Other long term (current) drug therapy; Z79.4 Long term (current) use of insulin; Z87.891 Personal history of nicotine dependence; Z88.8 Allergy status to other drugs, medicaments and biological substances; Z91.040 Latex allergy status; Z88.5 Allergy status to narcotic agent; Z91.013 Allergy to seafood
CPT/HCPCS: 36415; 71045; 80053; 83605; 84484; 85025; J2405; J7030

== ENCOUNTER 2022-09-04 11:30 | Observation (INO) | payer OTHER ==
[~2022-09-04] VITALS: Ht 172.7 cm; Wt 146.0 kg
[~2022-09-04 11:30] MED LIST changes: +BUMETANIDE0.5 M1 PO; -CARV3.125 PO; +Carvedilol12.5 MG PO; +NORT10 PO; -NORT25 PO; -VITAMIN D3 PO; +VITAMIN D31000 UNI1 PO
[2022-09-04 12:29] LABS: BASOPHILS ABSOLUTE AUTO 0.04 K/mm3 (0.00-0.23); BASOPHILS PERCENT AUTO 1 % (0-2); EOSINOPHILS ABSOLUTE AUTO 0.31 K/mm3 (0.00-0.68); EOSINOPHILS PERCENT AUTO 6 % (0-6); Hematocrit 28.9 % (33.0-51.0); Hemoglobin 8.8 g/dL (11.5-16.0); IMMATURE GRAN ABSOLUTE AUTO 0.01 K/mm3 (0.00-0.10); IMMATURE GRAN PERCENT AUTO 0 % (0-1); LYMPHOCYTES ABSOLUTE AUTO 0.98 K/mm3 (0.84-5.20); LYMPHOCYTES PERCENT AUTO 18 % (21-46); MONOCYTES ABSOLUTE AUTO 0.92 K/mm3 (0.16-1.47); MONOCYTES PERCENT AUTO 17 % (4-13); Mean Corpuscular HGB 23.7 pg (26.0-34.0); Mean Corpuscular HGB Conc 30.4 g/dL (31.5-36.5); Mean Corpuscular Volume 78 fL (80-100); Mean Platelet Volume 9.7 fL (9.1-12.4); NEUTROPHILS ABSOLUTE AUTO 3.19 K/mm3 (1.96-9.15); NEUTROPHILS PERCENT AUTO 59 % (41-73); Platelet Count 184 K/mm3 (150-400); RDW Coefficient Variation 18.6 % (11.7-14.2); Red Blood Cell Count 3.72 M/mm3 (3.80-5.20); White Blood Cell Count 5.45 K/mm3 (4.00-11.30)
[2022-09-04 12:47] LABS: Albumin, Blood 2.7 g/dL (3.4-5.0); Albumin/Globulin Ratio 0.7 (0.8-1.8); Bilirubin, Total 1.8 mg/dL (0.1-1.0); Bun/Creatinine Ratio 18.5 (12.0-20.0); Calcium, Blood 9.2 mg/dL (8.5-10.1); Creatinine, Blood 1.24 mg/dL (0.40-1.00); Potassium, Blood 3.4 mmol/L (3.5-5.5); Total Protein, Blood 6.7 g/dL (6.4-8.2)
[2022-09-04 16:20] LABS: Free Thyroxine 1.33 ng/dL (0.70-1.60)
[2022-09-04 16:22] LABS: Thyroid Stimulating Hormone 2.91 uIU/mL (0.360-4.800); Triiodothyronine, Free 2.52 pg/mL (2.18-3.98)
[2022-09-04 16:54] LABS: Influenza A, PCR NEGATIVE (NEGATIVE); Influenza B, PCR NEGATIVE (NEGATIVE); Resp Syncytial Virus, PCR NEGATIVE (NEGATIVE); SARS-Cov-2 (COVID-19) PCR, MMC NEGATIVE (NEGATIVE)
[2022-09-04 20:02] LABS: Percent Saturation 7.7 % (15.0-50.0)
[2022-09-04] MEDS ORDERED: EFFEXOR XR37.5 MG PO (20:45)
[2022-09-04] MEDS ORDERED: ELIQUIS5 M2 PO (20:49)
[2022-09-04] MEDS ORDERED: BUSPIRONE HCL5 M6 PO (21:28)
[2022-09-04] MEDS ORDERED: FLUT.05NI (21:32)
[2022-09-04] MEDS ORDERED: STEGLATRO15 MG PO (21:32)
[2022-09-04] MEDS ORDERED: NYSTOP15 GM TOP (23:37)
[2022-09-04] MEDS ORDERED: FERSU300 PO (23:46)
[2022-09-04] MEDS ORDERED: COLACE100 MG PO (23:47)
[2022-09-04] MEDS ORDERED: KLOR-CON 1010 ME1 PO (23:48)
[2022-09-04] MEDS ORDERED: CONSTULOSE10 GM/155 PO (23:51)
--- NOTE | 2022-09-05 00:10 | NUR ---
09/04/222229 PT ARRIVED TO ROOM FROM ER IN STABLE CONDITION. PT REPORTS R SIDE ABD PAIN, GAVE TYLENOL, WILL EVAL FOR EFFECT. PT REPORTS SOB WITH EXERTION, ON RA AT 100%. PT HAS TRACE TO 1+ EDEMA IN LE'S. REDNESS UNDER BREASTS IN ABD FOLDS AND IRMA AREA. INCREASED REDNESS/SLIGHT SBD IN R ABD FOLDS AND R IRMA AREA AND 1 SPOT ON L THIGH. CLEANED AREAS AND APPLIED BABY POWDER. PT REPORTS SHE USES NYSTATIN POWDER AT HOME. BS WAS 128. PT REPORTS SHE USES A CPAP AT HOME, WILL SPEAK WITH RT. LAST BM 08/31, GAVE MOM, WILL EVAL FOR EFFECT. NO OTHER APPARENT SIGNS OF DISTRESS. CALL LIGHT IS IN REACH. BED ALARM IS ON.
--- NOTE | 2022-09-05 03:25 | NUR ---
0000 PT LYING IN BED, EYES CLOSED, APPEARS TO BE RESTING. BREATHING IS EVEN, UNLABORED. NO APPARENT SIGNS OF DISTRESS. CALL LIGHT IS IN REACH.
--- NOTE | 2022-09-05 03:26 | NUR ---
0200 PT LYING IN BED, EYES CLOSED, APPEARS TO BE RESTING. BREATHING IS EVEN, UNLABORED. CPAP IS ON. NO APPARENT SIGNS OF DISTRESS. CALL LIGHT IS IN REACH. BED ALARM IS ON.
--- NOTE | 2022-09-05 03:26 | NUR ---
PT LYING IN BED, EYES CLOSED, APPEARS TO BE RESTING. WAKES EASILY TO VERBAL STIMULI. NO APPARENT SIGNS OF DISTRESS. CPAP IS ON. CALL LIGHT IS IN REACH. BED ALARM IS ON.
--- NOTE | 2022-09-05 03:27 | NUR ---
PT IS AAO X 4, REPORTS SOB WITH EXERTION, ON RA AT 100%. USES CPAP AT NOC. REPORTED R SIDE PAIN, GOT TYLENOL. NO BM SINCE 08/31/22, GOT MOM AND LACTULOSE, BOWEL CARE PROTOCOL IS ORDERED. RASH UNDER BREASTS, IN ABD FOLDS, IN IRMA AREA. INCREASED REDNESS WITH SLIGHT SBD ON R SIDE OF ABD FOLDS AND R IRMA AREA AND 1 SPOT ON L THIGH. USING NYSTATIN POWDER AND BABY POWDER. BS WAS 128 AND 110.
[2022-09-05 05:27] LABS: Bun/Creatinine Ratio 19.5 (12.0-20.0); Calcium, Blood 8.8 mg/dL (8.5-10.1); Creatinine, Blood 1.18 mg/dL (0.40-1.00); Potassium, Blood 3.3 mmol/L (3.5-5.5)
--- NOTE | 2022-09-05 11:32 | NUR ---
QVAR PT RELATED TO PHYSICAL THERAPY THAT SHE TAKES QVAR AT HOME. IT WAS NOT ON HER MEDICATION RECONCILIATION FROM HOME. CALLED DR BURT FOR ORDERS. cONTINUE POC.
--- NOTE | 2022-09-05 17:39 | NUR ---
EVENING NOTE PT LAERT AND ORIENTED X4. SHE IS SLOW TO RESPOND BUT APPROPRIATE. NOTED HAND TREMOR THAT SHE SAYS IS NEW. SHE TALKS SLOW AND MOVES SLOW. THERAPY NOTED ORTHOSTATIC CHANGES TODAY BUT SHE DENIED FEELING DIZZY. 1 PERSON TO THE BSC. THIS EVENING SBP 100/58. HELD COREG. ECHO DONE. IV FLUIDS COMPLETE. CONTINUE POC.
--- NOTE | 2022-09-05 19:11 | NUR ---
RECEIVED BEDSIDE REPORT FROM DAYSRIFT RN. PT RESTING AT THIS TIME. EYES CLOSED. RESP E/U ON RA. SALINE LOCKED. A/O PER DAY RN; USES CALL LT APPROPRIATELY. WILL PROVIDE CARE T/O SHIFT.
--- NOTE | 2022-09-05 20:14 | NUR ---
A/O. ANSWERED ALL QUESTIONS APPROPRIATELY. TALKS SLOW BUT COMPLETELY ORIENTED TO ANSWERING QUESTIONS. STATES SHE FEELS LIKE SHE'S BETTER. A LITTLE SOB WITH MOVEMENT SHE STATES. ON RA. SATS PER CONT BIOX 98%. RESP E/U. TOOK MEDS WHOLE WITH WATER AND WITHOUT DIFFICULTY. NO COMPLAINTS OF PAIN, NAUSEA, OR N/T. WILL CONTINUE TO PROVIDE CARE T/O SHIFT. CALL LT IN REACH. BED ALARM FOR PT SAFETY.
--- NOTE | 2022-09-05 21:56 | NUR ---
PT AWAKE AND USING HER CELL PHONE. NO NEEDS AT THIS TIME. CALL LT IN REACH.
--- NOTE | 2022-09-05 23:38 | NUR ---
PT RESTING AT THIS TIME WITH CPAP IN PLACE. CALL LT IN REACH. BED ALARMED FOR PT SAFETY.
--- NOTE | 2022-09-06 00:36 | NUR ---
PT CONTINUES TO REST QUIETLY. CPAP IN PLACE. 95% ON CONT BIOX. CALL LT IN REACH. BED ALARMED FOR PT SAFETY.
--- NOTE | 2022-09-06 01:30 | NUR ---
PT RESTING QUIETLY. CALL LT IN REACH.
--- NOTE | 2022-09-06 03:02 | NUR ---
TURNED DOWN PT'S THERMOSTAT AND PULLED BACK BLANKET BECAUSE PT WAS FEELING TOO WARM. NO OTHER NEEDS. CALL LT IN REACH.
--- NOTE | 2022-09-06 04:03 | NUR ---
PT LYING IN BED WEARING CPAP LOOKING AT TV. RESP E/U ON RA. NO NEEDS AT THIS TIME. CALL LT IN REACH.
--- NOTE | 2022-09-06 04:04 | NUR ---
SHIFT SUMMARY: A/O. ANSWERED QUESTIONS APPROPRIATELY, SPEAKING SLOWLY. NO COMPLAINTS OF PAIN OR NAUSEA. ON RA. A LITTLE SOB WITH MOVEMENT PER PT. STATES SHE'S FEELING BETTER SINCE COMING INTO THE HOSPITAL. 1PA TO BSC. SALINE LOCKED. NO ACUTE CHANGES. WILL CONTINUE TO PROVIDE CARE UNTIL SHIFT REPORT TO ONCOMING NURSE.
--- NOTE | 2022-09-06 06:13 | NUR ---
PT RESTING QUIETLY. CPAP IN PLACE. CONT BIOX 98%. CALL LT IN REACH.
[2022-09-06 06:24] LABS: BASOPHILS ABSOLUTE AUTO 0.03 K/mm3 (0.00-0.23); BASOPHILS PERCENT AUTO 1 % (0-2); EOSINOPHILS ABSOLUTE AUTO 0.28 K/mm3 (0.00-0.68); EOSINOPHILS PERCENT AUTO 7 % (0-6); Hematocrit 26.8 % (33.0-51.0); Hemoglobin 8.4 g/dL (11.5-16.0); IMMATURE GRAN ABSOLUTE AUTO 0.01 K/mm3 (0.00-0.10); IMMATURE GRAN PERCENT AUTO 0 % (0-1); LYMPHOCYTES ABSOLUTE AUTO 0.91 K/mm3 (0.84-5.20); LYMPHOCYTES PERCENT AUTO 24 % (21-46); MONOCYTES ABSOLUTE AUTO 0.67 K/mm3 (0.16-1.47); MONOCYTES PERCENT AUTO 17 % (4-13); Mean Corpuscular HGB 23.6 pg (26.0-34.0); Mean Corpuscular HGB Conc 31.3 g/dL (31.5-36.5); Mean Corpuscular Volume 75 fL (80-100); Mean Platelet Volume 9.3 fL (9.1-12.4); NEUTROPHILS ABSOLUTE AUTO 1.95 K/mm3 (1.96-9.15); NEUTROPHILS PERCENT AUTO 51 % (41-73); Platelet Count 155 K/mm3 (150-400); RDW Coefficient Variation 18.8 % (11.7-14.2); RDW Standard Deviation 49.6 fL (35.1-46.3); Red Blood Cell Count 3.56 M/mm3 (3.80-5.20); White Blood Cell Count 3.85 K/mm3 (4.00-11.30)
[2022-09-06 06:44] LABS: Calcium, Blood 8.6 mg/dL (8.5-10.1); Creatinine, Blood 1.16 mg/dL (0.40-1.00); Potassium, Blood 3.7 mmol/L (3.5-5.5)
--- NOTE | 2022-09-06 16:34 | NUR ---
PT AOX4 AND COOPERATIVE OF CARE. PT HAS BEEN DOING WELL 1-2 PERSON ASSIST TO RESTOOM WITH WALKER AND GAITBELT. 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 PT HAS BEEN UP FOR MEALS AND CALL APPROPRIATELY. NO DISTRESS NOTED. WILL CONTINUE TO MONITOR.
--- NOTE | 2022-09-06 19:15 | NUR ---
RECEIVED BEDSIDE REPORT FROM SAW RN. PT SITTING UP IN BED EATING DINNER. RESP E/U ON RA. SMILING AT STAFF. NO NEEDS AT THIS TIME. WILL CONTINUE TO PROVIDE CARE T/O SHIFT. CALL LT IN REACH.
--- NOTE | 2022-09-06 20:08 | NUR ---
PT STATES SHE'S PRETTY TIRED BECAUSE SHE DID A LOT TODAY. STATES SHE AMBULATED IN THE [place] WITH PT AND TOOK A SHOWER TODAY WELL. 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 NO ACUTE CHANGES IN ASSESSMENT. TOOK PILLS WHOLE WITH WATER WITHOUT DIFFICULTY. ON RA. 97% CONT BIOX. NO COMPLAINTS OF PAIN OR NAUSEA. WILL CONTINUE TO PROVIDE CARE. CALL LT IN REACH.
--- NOTE | 2022-09-06 22:10 | NUR ---
PT LYING IN BED WITH EYES CLOSED. RESP E/U ON RA. CALL LT IN REACH.
--- NOTE | 2022-09-06 23:20 | NUR ---
PT AWAKENS EASILY TO NAME. LACTULOSE GIVEN. NO OTHER NEEDS. CALL LT IN REACH.
--- NOTE | 2022-09-07 00:32 | NUR ---
PT ASSISTED TO THE BSC AND BACK TO BED. NO BM, HOWEVER VOIDED WELL. NO OTHER NEEDS. CALL LT IN REACH.
--- NOTE | 2022-09-07 02:00 | NUR ---
PT RESTING QUIETLY. CPAP IN PLACE. 97% CONT BIOX. CALL LT IN REACH.
--- NOTE | 2022-09-07 04:04 | NUR ---
SHIFT SUMMARY: A/O. FLAT AFFECT. TALKS AND MOVES SLOWLY. MORE CONVERSATIONAL THIS SHIFT. PT SMILING AND ENGAGING IN CONVERSATION. NO COMPLAINTS OF SOB, PAIN, OR NAUSEA. PT STATES MORE TIRED TONIGHT BECAUSE SHE WALKED IN THE [place] AND ALSO TOOK A SHOWER. USED BSC WITH 1PA USING FWW. PT VOIDING WELL. NO BM THIS SHIFT, BOWEL CARE GIVEN PER EMAR. CONTINUES TO HAVE SLIGHT TREMORS TO BILAT HANDS. NO DIFFICULTY IN SWALLOWING OR TALKING. ON RA. CPAP AT BEDTIME, 97% BIOX. NO ACUTE CHANGES. WILL CONTINUE TO PROVIDE CARE UNTIL SHIFT REPORT.
--- NOTE | 2022-09-07 04:04 | NUR ---
PT RESTING QUIETLY. CPAP IN PLACE. 97% CONT BIOX. CALL LT IN REACH.
--- NOTE | 2022-09-07 05:21 | NUR ---
PT CONTINUES TO REST QUIETLY. CPAP IN PLACE. 97% CONT BIOX. CALL LT IN REACH.
[2022-09-07 06:27] LABS: BASOPHILS ABSOLUTE AUTO 0.04 K/mm3 (0.00-0.23); BASOPHILS PERCENT AUTO 1 % (0-2); EOSINOPHILS ABSOLUTE AUTO 0.29 K/mm3 (0.00-0.68); EOSINOPHILS PERCENT AUTO 7 % (0-6); Hematocrit 27.9 % (33.0-51.0); Hemoglobin 8.6 g/dL (11.5-16.0); IMMATURE GRAN ABSOLUTE AUTO 0.01 K/mm3 (0.00-0.10); IMMATURE GRAN PERCENT AUTO 0 % (0-1); LYMPHOCYTES ABSOLUTE AUTO 1.03 K/mm3 (0.84-5.20); LYMPHOCYTES PERCENT AUTO 24 % (21-46); MONOCYTES PERCENT AUTO 19 % (4-13); Mean Corpuscular HGB 23.4 pg (26.0-34.0); Mean Corpuscular HGB Conc 30.8 g/dL (31.5-36.5); Mean Corpuscular Volume 76 fL (80-100); NEUTROPHILS ABSOLUTE AUTO 2.16 K/mm3 (1.96-9.15); NEUTROPHILS PERCENT AUTO 50 % (41-73); Platelet Count 154 K/mm3 (150-400); RDW Coefficient Variation 19.3 % (11.7-14.2); RDW Standard Deviation 51.1 fL (35.1-46.3); Red Blood Cell Count 3.67 M/mm3 (3.80-5.20); White Blood Cell Count 4.33 K/mm3 (4.00-11.30)
[2022-09-07 06:47] LABS: Albumin, Blood 2.4 g/dL (3.4-5.0); Albumin/Globulin Ratio 0.6 (0.8-1.8); Bilirubin, Total 1.7 mg/dL (0.1-1.0); Bun/Creatinine Ratio 22.2 (12.0-20.0); Calcium, Blood 8.8 mg/dL (8.5-10.1); Creatinine, Blood 1.08 mg/dL (0.40-1.00); Globulin, Blood 3.9 g/dL (2.2-4.0); Potassium, Blood 3.6 mmol/L (3.5-5.5); Total Protein, Blood 6.3 g/dL (6.4-8.2)
--- NOTE | 2022-09-07 18:02 | NUR ---
DAYSHIFT SUMMARY Patient very tired in the mornings, slept in late, then got OOB worked with physical therapy, afterwards sat in recliner and ate breakfast. Lactulose given for constipation, 1 small formed BM this shift. Patient doing well ambulating with 1 person SBA. changed CBG orders to BID, blood sugar this morning was 101mg/dL. Vitals stable. Will continue plan of care, awaiting placement.
--- NOTE | 2022-09-07 19:10 | NUR ---
RECEIVED BEDSIDE REPORT FROM SAW RN. PT SITTING ON SIDE OF BED SMILING AND JOKING WITH STAFF. STATES SHE HAD A GOOD DAY, SHE WALKED IN THE [place] AND HAD A BOWEL MOVEMENT. RESP E/U ON RA. DENIES SOB. WILL CONTINUE TO PROVIDE CARE T/O SHIFT. CALL LT IN REACH.
--- NOTE | 2022-09-07 20:10 | NUR ---
PT ASLEEP WHEN ENTERING RM. AWAKENS EASILY TO NAME. A/O. ANSWERS ALL QUESTIONS APPROPRIATELY. TALKS SLOWLY. NO ACUTE CHANGES. MEDS TAKEN WHOLE WITH WATER WITHOUT DIFFICULTY. PT USING BOTH HANDS TO HOLD MEDICINE CUP AND TO DRINK WATER. PT SLOWLY MOVES ALL EXTREMETIES. PT ASKED FOR CELL PHONE AND IS ABLE TO HOLD PHONE WELL. SKIN FOLDS CLEANSED AND DRIED AND MICONAZOLE POWDER PLACED. NO OTHER NEEDS AT THIS TIME. CALL LT IN REACH.
--- NOTE | 2022-09-07 22:10 | NUR ---
PT RESTING QUIETLY, RESP E/U ON RA. CONT BIOX 96%. CALL LT IN REACH.
--- NOTE | 2022-09-07 23:58 | NUR ---
PT RESTING QUIETLY. RESP E/U ON RA. 96% CONT BIOX. CALL LT IN REACH.
--- NOTE | 2022-09-08 00:30 | NUR ---
MED GIVEN TO PT. NO OTHER NEEDS. CALL LT IN REACH.
[2022-09-08 01:09] LABS: COPPER/CRT RATIO 15 (0-49)
--- NOTE | 2022-09-08 02:22 | NUR ---
PT FEELS LIKE SHE NEEDS TO HAVE A BM. ASSISTED MARKET RESEARCH ANALYST TO PLACE PT ON BEDPAN. PT ABLE TO RAISE HIPS. CALL LT WITHIN REACH.
--- NOTE | 2022-09-08 03:05 | NUR ---
PT UNABLE TO HAVE A BM AT THIS TIME. PT REPOSITIONED FOR COMFORT. CALL LT IN REACH.
--- NOTE | 2022-09-08 03:52 | NUR ---
SHIFT SUMMARY: MORE AWAKE AND ALERT AT BEGINNING OF SHIFT, HOWEVER, STILL TALKS SLOWLY, SLOW RESPONSES. AWAKENS EASILY TO NAME. NO COMPLAINTS OF PAIN OR DIFFICULTY BREATHING. RESP E/U ON RA. CPAP AT NIGHT, 95% CONT BIOX. NO BM NOTED. LACTULOSE GIVEN. MEDS TAKEN WITHOUT DIFFICULTY. ABLE TO STATE NEEDS APPROPRIATELY. PLAN IS SNF AT DISCHARGE. WILL CONTINUE TO PROVIDE CARE UNTIL SHIFT REPORT TO ONCOMING NURSE.
--- NOTE | 2022-09-08 05:39 | NUR ---
PT RESTING QUIETLY. CPAP IN PLACE. 95% CONT BIOX. CALL LT IN REACH.
[2022-09-08 05:54] LABS: BASOPHILS ABSOLUTE AUTO 0.03 K/mm3 (0.00-0.23); BASOPHILS PERCENT AUTO 1 % (0-2); EOSINOPHILS ABSOLUTE AUTO 0.32 K/mm3 (0.00-0.68); EOSINOPHILS PERCENT AUTO 7 % (0-6); Hematocrit 26.7 % (33.0-51.0); Hemoglobin 8.5 g/dL (11.5-16.0); IMMATURE GRAN ABSOLUTE AUTO 0.01 K/mm3 (0.00-0.10); IMMATURE GRAN PERCENT AUTO 0 % (0-1); LYMPHOCYTES ABSOLUTE AUTO 0.99 K/mm3 (0.84-5.20); LYMPHOCYTES PERCENT AUTO 20 % (21-46); MONOCYTES ABSOLUTE AUTO 0.86 K/mm3 (0.16-1.47); MONOCYTES PERCENT AUTO 18 % (4-13); Mean Corpuscular HGB Conc 31.8 g/dL (31.5-36.5); Mean Corpuscular Volume 75 fL (80-100); Mean Platelet Volume 10.6 fL (9.1-12.4); NEUTROPHILS ABSOLUTE AUTO 2.69 K/mm3 (1.96-9.15); NEUTROPHILS PERCENT AUTO 55 % (41-73); Platelet Count 177 K/mm3 (150-400); RDW Coefficient Variation 19.2 % (11.7-14.2); Red Blood Cell Count 3.54 M/mm3 (3.80-5.20)
[2022-09-08 06:25] LABS: Albumin, Blood 2.4 g/dL (3.4-5.0); Albumin/Globulin Ratio 0.6 (0.8-1.8); Bilirubin, Total 1.5 mg/dL (0.1-1.0); Bun/Creatinine Ratio 22.3 (12.0-20.0); Creatinine, Blood 1.12 mg/dL (0.40-1.00); Potassium, Blood 3.9 mmol/L (3.5-5.5); Total Protein, Blood 6.4 g/dL (6.4-8.2)
--- NOTE | 2022-09-08 11:08 | NUR ---
PATIENT ALERTNESS: PATIENT HAS SLEPT THROUGHOUT THIS MORNING. WHEN NURSE ENTERS THE ROOM AND CALLS HER NAME, PATIENT WAKES EASILY, BUT FALLS BACK ASLEEP. PATIENT WILL SOMETIMES GRUNT IN RESPONSE. PATIENT DID SAY "YES" THAT SHE WANTED THE NURSE TO ANSWER HER CELL PHONE, BUT THE PATIENT FELL BACK ASLEEP BEFORE BEING ABLE TO TALK ON THE PHONE. PATIENT'S WAS ON THE PHONE AND REPORTED THAT IT DOES TAKE THE PATIENT A LONG TIME TO WAKE UP. PATIENT'S VITALS ARE STABLE AND CBG IS 117. PATIENT DOES NOT APPEAR TO BE IN ANY DISTRESS. CPAP IN PLACE. SPO2 BETWEEN 94-97%. DISCUSSED WITH LOCKSTITCH SHOULDER JOINER AND NOTIFIED DR. MCFARLAND OF FINDINGS. NO NEW ORDERS AT THIS TIME.
--- NOTE | 2022-09-08 12:00 | NUR ---
CONTINUED DROWSINESS: SPOKE WITH DR. MCFARLAND AGAIN IN REGARDS TO THE PATIENT'S LEVEL OF DROWSINESS/ALERTNESS. PATIENT IS ABLE TO PERFORM SOME COMMANDS (EX: SMILE), BUT PATIENT DRIFTS OFF TO SLEEP BEFORE SHE CAN ANSWER OR MOVE IN RESPONSE. PATIENT HAS WEAKNESS IN HER LIMBS AND IS BARELY ABLE TO MOVE THEM. WHEN QUESTIONED THE PATIENT IF THIS IS THE WEAKNESS THAT BROUGHT HER INTO THE HOSPITAL, THE PATIENT RESPONDED "YES". PATIENT CONTINUES TO BE STABLE ON RA WITH SPO2 FROM 94-98%. DR. MCFARLAND IN THE ROOM WITH THE RN. NO NEW ORDERS AT THIS TIME.
[2022-09-08] MEDS ORDERED: ACET325 PO (12:15)
[2022-09-08] MEDS ORDERED: MOME220I INH (12:16)
[2022-09-08 12:18] LABS: SARS-Cov-2 (COVID-19) PCR, MMC NEGATIVE (NEGATIVE)
--- NOTE | 2022-09-08 18:38 | NUR ---
END OF SHIFT: PATIENT STARTED THE SHIFT VERY DROWSY AND WEAK (SEE NURSE'S NOTES). DISCHARGE WAS CANCELED RELATED TO THESE FINDINGS. THROUGHOUT THE SHIFT, PATIENT CONTINUED TO MAKE PROGRESS. BY THE END OF THE SHIFT, PATIENT WAS RESPONDING WITH FULL SENTENCES AND ASKING QUESTIONS. PATIENT ABLE TO TAKE AFTERNOON MEDICATIONS AND EAT SOME OF HER DINNER WITH HER FEEDING HER. PATIENT IS UNABLE TO RELIABLY WARES SORTER OR HOLD ONTO AN OBJECT. PATIENT HAS IMPROVED MOBILITY AND MOVEMENT WITH HER ARMS AND LEGS. PATIENT TEARFUL AT TIMES. SHE IS FRUSTRATED THAT TODAY FELT LIKE A SET-BACK AFTER YESTERDAY. SHE REPORTS CONCERN OVER WHY THIS IS HAPPENING TO HER.
--- NOTE | 2022-09-09 04:27 | NUR ---
SHIFT SUMMARY PT VERY DROWSY/LETHARGIC DURING SHIFT. PT AWAKE AT BEGINNING OF SHIFT AND ABLE TO FOLLOW SOME COMMANDS. WHEN ASKED QUESTIONS, PT ONLY RESPONDED TO WHAT HER NAME WAS. PT ABLE TO SWALLOW MEDICATIONS AND TAKE LACTULOSE WITHOUT ISSUE. PT NODS OFF BACK TO SLEEP IF NOT STIMULATED DURING INTERACTION. PT INCONTINENT OF URINE, REMAINED IN BED DURING SHIFT, [id number]. CPAP ON THROUHGOUT NIGHT, OTHERWISE ROOM AIR. NO BOWEL MOVEMENT WITH STOOL SOFTNERS AND LACTULOSE. FREQUENT ROUNDING ON PT TP ASSIST IN NEEDS.
[2022-09-09 05:36] LABS: BASOPHILS ABSOLUTE AUTO 0.04 K/mm3 (0.00-0.23); BASOPHILS PERCENT AUTO 1 % (0-2); EOSINOPHILS ABSOLUTE AUTO 0.21 K/mm3 (0.00-0.68); EOSINOPHILS PERCENT AUTO 4 % (0-6); Hematocrit 27.6 % (33.0-51.0); Hemoglobin 8.6 g/dL (11.5-16.0); IMMATURE GRAN ABSOLUTE AUTO 0.01 K/mm3 (0.00-0.10); IMMATURE GRAN PERCENT AUTO 0 % (0-1); LYMPHOCYTES ABSOLUTE AUTO 0.99 K/mm3 (0.84-5.20); LYMPHOCYTES PERCENT AUTO 16 % (21-46); MONOCYTES ABSOLUTE AUTO 0.98 K/mm3 (0.16-1.47); MONOCYTES PERCENT AUTO 16 % (4-13); Mean Corpuscular HGB 23.6 pg (26.0-34.0); Mean Corpuscular HGB Conc 31.2 g/dL (31.5-36.5); Mean Corpuscular Volume 76 fL (80-100); Mean Platelet Volume 10.5 fL (9.1-12.4); NEUTROPHILS ABSOLUTE AUTO 3.81 K/mm3 (1.96-9.15); NEUTROPHILS PERCENT AUTO 63 % (41-73); Platelet Count 162 K/mm3 (150-400); RDW Coefficient Variation 19.5 % (11.7-14.2); RDW Standard Deviation 51.7 fL (35.1-46.3); Red Blood Cell Count 3.64 M/mm3 (3.80-5.20); White Blood Cell Count 6.04 K/mm3 (4.00-11.30)
[2022-09-09 05:57] LABS: Bun/Creatinine Ratio 24.3 (12.0-20.0); Calcium, Blood 8.9 mg/dL (8.5-10.1); Creatinine, Blood 1.07 mg/dL (0.40-1.00); Potassium, Blood 3.9 mmol/L (3.5-5.5)
[2022-09-09 08:45] LABS: International Normalized Ratio 1.73; Prothrombin Time Results 17.5 Sec (9.7-11.5)
--- NOTE | 2022-09-09 14:41 | NUR ---
PATIENT GOT UP WITH PT, WALKED TO BR WITH FWW, GAIT BELT, AND ONE PERSON ASSIST. PATIENT SPENT ~15 MINUTES ON TOILET, ONLY HAD SMALL HARD BM, FELT LIKE SHE NEEDED TO GO MORE. THIS AUTHOR WAS NOTIFIED BY ASSET MANAGEMENT COORDINATOR THAT PT APPEARED TO HAVE HARDENED STOOL IN VAULT PREVENTING BM. THIS AUTHOR ASSESSED PT, WAS FOUND TO HAVE LARGE AMOUNT HARDENED STOOL COMPLETELY OBSTRUCTING RECTAL OUTLET. ATTEMPTED TO USE SURGICAL LUBE TO EASE STOOL OUT, BUT WAS ONLY ABLE TO REMOVE PART OF IT. NOTIFIED DR. BURT, HE SUGGESTED GIVING LACTULOSE ENEMA TO HOPEFULLY ASSIST STOOL TO PASS. ENEMA GIVEN, AWAITING RESULTS. LACTULOSE DOSE FROM 1200 HELD PER PHARMACY SINCE ENEMA GIVEN.
--- NOTE | 2022-09-09 19:28 | NUR ---
SHIFT SUMMARY: PATIENT HAD A TOTAL OF 4 BM'S TODAY, 2 AFTER LACTULOSE ENEMA, MIX OF HARD AND LIQUID STOOL. SHE IS A&O X 3, AWAKE ALL DAY. TOLERATING SMALL AMOUNTS OF FOOD. ROOM AIR WHILE AWAKE, CPAP AT HS WITH CONTINUOUS OXIMETRY PER PROTOCOL. WORKED WITH PHYSICAL THERAPY. PLAN IS TRANSFER TO [facility] WHEN MENTATION IMPROVES. HAD VISIT FROM HER EDGAR TODAY.
--- NOTE | 2022-09-09 21:39 | NUR ---
REMOVED COMPRESSION SOCK WITH ANKITA GERMAN PERMISSION AND PRESENT FOR REMOVAL
--- NOTE | 2022-09-10 04:27 | NUR ---
SHIFT SUMMARY PT IMPROVMENT OVERNIGHT. PT ORIENTED X4, A LITTLE FORGETFUL. PT ABLE TO STAY AWAKE EASILY, CONVERSATES, USING CALL LIGHT. PT UP TO COMMODE SBA FWW X1. USED BEDPAN X1 AND INCONTINENT OF STOOL. PT HAD X2 LARGE LOOSE BOWEL MOVEMENTS, CONTINUES LACTULOSE. DENIES ANY CP/SOB OR ANY OTHER S/S OF DISTRESS. USING CPAP AT NIGHT. CALL LIHGT IN REACH, ABLE TO MAKE NEEDS KNOWN.
[2022-09-10 05:02] LABS: BASOPHILS ABSOLUTE AUTO 0.06 K/mm3 (0.00-0.23); BASOPHILS PERCENT AUTO 1 % (0-2); EOSINOPHILS ABSOLUTE AUTO 0.37 K/mm3 (0.00-0.68); EOSINOPHILS PERCENT AUTO 6 % (0-6); Hemoglobin 8.5 g/dL (11.5-16.0); IMMATURE GRAN ABSOLUTE AUTO 0.02 K/mm3 (0.00-0.10); IMMATURE GRAN PERCENT AUTO 0 % (0-1); LYMPHOCYTES ABSOLUTE AUTO 1.39 K/mm3 (0.84-5.20); LYMPHOCYTES PERCENT AUTO 23 % (21-46); MONOCYTES ABSOLUTE AUTO 1.24 K/mm3 (0.16-1.47); MONOCYTES PERCENT AUTO 20 % (4-13); Mean Corpuscular HGB 23.9 pg (26.0-34.0); Mean Corpuscular HGB Conc 31.5 g/dL (31.5-36.5); Mean Corpuscular Volume 76 fL (80-100); Mean Platelet Volume 10.2 fL (9.1-12.4); NEUTROPHILS ABSOLUTE AUTO 3.08 K/mm3 (1.96-9.15); NEUTROPHILS PERCENT AUTO 50 % (41-73); Platelet Count 140 K/mm3 (150-400); RDW Coefficient Variation 19.7 % (11.7-14.2); RDW Standard Deviation 52.4 fL (35.1-46.3); Red Blood Cell Count 3.56 M/mm3 (3.80-5.20); White Blood Cell Count 6.16 K/mm3 (4.00-11.30)
[2022-09-10 05:32] LABS: Bun/Creatinine Ratio 26.5 (12.0-20.0); Creatinine, Blood 1.02 mg/dL (0.40-1.00); Potassium, Blood 3.5 mmol/L (3.5-5.5)
[2022-09-10] MEDS ORDERED: QVAR REDIHALE10.6 G2 INH (14:48)
[2022-09-10] MEDS ORDERED: FURO40 PO (14:57)
--- NOTE | 2022-09-10 18:38 | NUR ---
SHIFT SUMMARY A&O X 4. VSS. PT SLOW TO RESPOND VERBALLY. APPEARS TO LACK MOTIVATION TO MOVE. ENCOURAGED HER TO SIT IN THE CHAIR TODAY, SHE AGREED. ATE LUNCH & DINNER IN THE CHAIR. IS 2 PERSON ASSIST TO BSC & TO CHAIR WITH WALKER. MOVES SLOWLY. ANTICIPATES TRANSFER TO SNF TOMORROW.
--- NOTE | 2022-09-11 01:11 | NUR ---
RECEIVED REPORT FROM ANKITA HALL. ASSUMED CARE AT 0111. CONCUR WITH ASSESSMENTS. WILL CONTINUE TO PROVIDE CARE UNTIL SHIFT REPORT. CALL LT IN REACH.
--- NOTE | 2022-09-11 01:19 | NUR ---
ALERT AND ORIENTED. TALKED TO PT ABOUT GOING TO [facility], PT STATES YEAH THAT SOUNDS LIKE WHAT'S GOING TO HAPPEN. PT MORE AWAKE AND TALKING. IV'S X 2 FLUSHED AND SALINE LOCKED. NO OTHER NEEDS. CALL LT IN REACH.
--- NOTE | 2022-09-11 03:02 | NUR ---
PT RESTING QUIETLY. CALL LT IN REACH.
--- NOTE | 2022-09-11 04:44 | NUR ---
PT RESTING QUIETLY. CALL LT IN REACH.
--- NOTE | 2022-09-11 04:45 | NUR ---
SHIFT SUMMARY: A/O. ON RA. NO COMPLAINTS. APPEARED MORE ALERT DURING THE NIGHT. NO ACUTE CHANGES. [facility] WILL CONTINUE TO PROVIDE CARE UNTIL SHIFT REPORT TO ONCOMING NURSE.
[2022-09-11 04:54] LABS: Hematocrit 26.9 % (33.0-51.0); Hemoglobin 8.4 g/dL (11.5-16.0)
[2022-09-11 05:16] LABS: Bun/Creatinine Ratio 23.8 (12.0-20.0); Creatinine, Blood 1.22 mg/dL (0.40-1.00); Potassium, Blood 3.3 mmol/L (3.5-5.5)
--- NOTE | 2022-09-11 05:42 | NUR ---
PT CONTINUES TO REST QUIETLY. CALL LT IN REACH.
[2022-09-11 10:37] LABS: Influenza A, PCR NEGATIVE (NEGATIVE); Influenza B, PCR NEGATIVE (NEGATIVE); Resp Syncytial Virus, PCR NEGATIVE (NEGATIVE); SARS-Cov-2 (COVID-19) PCR, MMC NEGATIVE (NEGATIVE)
--- NOTE | 2022-09-11 15:44 | NUR ---
PT DISCHARGED TO [facility] AT 1540 VIA WHEELCHAIR. REPORT CALLED TO [facility] PRIOR TO TRANSFER. NO DISTRESS NOTED AOX3 AND VERY FLAT AFFECT. PT HAD ALL BELONGINGS COLLECTED AND SENT WITH PT. PACKET PLACED WITH SILVICULTURE FORESTER. NO DISTRESS NOTED.
== END 2022-09-11 15:43 ==
LOC: ER 11:30 → ERHOLD 11:31 → MEDS 11:31
PROVIDERS: Emergency Medicine; Family Medicine; Internal Medicine; Physician Assistant; Student in an Organized Health Care Education/Training Program; ADMIT Internal Medicine
DX: R53.1 Weakness (principal); K76.82 Hepatic encephalopathy; R60.0 Localized edema; E11.22 Type 2 diabetes mellitus with diabetic chronic kidney disease; I13.0 Hypertensive heart and chronic kidney disease with heart failure and stage 1 through stage 4 chronic kidney disease, or unspecified chronic kidney disease; I50.30 Unspecified diastolic (congestive) heart failure; N18.31 Chronic kidney disease, stage 3a; J45.909 Unspecified asthma, uncomplicated; D64.9 Anemia, unspecified; K76.0 Fatty (change of) liver, not elsewhere classified; I48.91 Unspecified atrial fibrillation; K74.60 Unspecified cirrhosis of liver; Z91.81 History of falling; Z79.899 Other long term (current) drug therapy; Z79.4 Long term (current) use of insulin; Z91.040 Latex allergy status; Z88.8 Allergy status to other drugs, medicaments and biological substances; Z88.2 Allergy status to sulfonamides; Z88.5 Allergy status to narcotic agent; Z91.018 Allergy to other foods; Z87.891 Personal history of nicotine dependence; Z20.822 Contact with and (suspected) exposure to COVID-19; E66.01 Morbid (severe) obesity due to excess calories; Z68.42 Body mass index [BMI] 45.0-49.9, adult
CPT/HCPCS: 0241U; 36415; 70450; 80048; 80053; 82140; 82525; 82550; 82570; 82652; 82728; 82947; 83540; 83550; 83735; 83880; 84439; 84443; 84481; 85014; 85018; 85025; 85610; 93005; 93010; 93306; 94640; 94660; 94664; 94762; 97110; 97116; 97162; 97530; 99285-25; A9270; G0378; J1815; J2916; J7120; U0004

== ENCOUNTER → 2022-10-08 | Outpatient (CLI) | payer OTHER ==
[~2022-10-08] MED LIST changes: +ACYC800 PO; +BUSPIRONE HCL5 M6 PO; +CEFD300 PO; +COLACE100 MG PO; +CONSTULOSE10 GM/155 PO; +EFFEXOR XR37.5 MG PO; +ELIQUIS2.5 MG PO; +ELIQUIS5 M2 PO; +FLUT.05NI; +FURO40 PO; +KLOR-CON 1010 ME1 PO; +LEVFLO500 PO; +Lasix80 MG PO; +MEDR10 PO; +METO25ER PO; +MOME220I INH; +NYSTOP15 GM TOP; +QVAR REDIHALE10.6 G2 INH; +STEGLATRO15 MG PO; +VISBIOME 112.51 EACH PO
== END ==
LOC: EDSTATUS 09:43 → LAB RH 15:24
DX: I12.9 Hypertensive chronic kidney disease with stage 1 through stage 4 chronic kidney disease, or unspecified chronic kidney disease (principal); N18.30 Chronic kidney disease, stage 3 unspecified; E11.9 Type 2 diabetes mellitus without complications
CPT/HCPCS: 82140

== ENCOUNTER → 2022-10-17 | Outpatient (CLI) | payer OTHER ==
[2022-10-17 17:11] LABS: Hematocrit 25.7 % (33.0-51.0); Hemoglobin 8.5 g/dL (11.5-16.0); Mean Corpuscular HGB 28.4 pg (26.0-34.0); Mean Corpuscular HGB Conc 33.1 g/dL (31.5-36.5); Mean Corpuscular Volume 86 fL (80-100); Platelet Count 175 K/mm3 (150-400); RDW Standard Deviation 82.2 fL (35.1-46.3); Red Blood Cell Count 2.99 M/mm3 (3.80-5.20); White Blood Cell Count 6.47 K/mm3 (4.00-11.30)
[2022-10-17 17:37] LABS: Albumin, Blood 1.7 g/dL (3.4-5.0); Albumin/Globulin Ratio 0.4 (0.8-1.8); Bun/Creatinine Ratio 16.6 (12.0-20.0); Calcium, Blood 8.8 mg/dL (8.5-10.1); Creatinine, Blood 2.59 mg/dL (0.40-1.00); Globulin, Blood 4.3 g/dL (2.2-4.0); Potassium, Blood 3.3 mmol/L (3.5-5.5)
== END ==
LOC: EDSTATUS 09:44 → LAB RH 16:23
DX: A49.9 Bacterial infection, unspecified (principal)
CPT/HCPCS: 80053; 82140; 85027; 87070; 87075; 87077; 87186; 87205

== ENCOUNTER 2022-10-22 18:39 | Inpatient (IN) | payer OTHER ==
[~2022-10-22] VITALS: Ht 170.2 cm; Wt 131.3 kg
[~2022-10-22 18:39] MED LIST changes: -ELIQUIS2.5 MG PO; -LEVFLO500 PO; -MEDR10 PO; -METO25ER PO; -VISBIOME 112.51 EACH PO
[2022-10-22 20:11] LABS: BASOPHILS ABSOLUTE AUTO 0.05 K/mm3 (0.00-0.23); BASOPHILS PERCENT AUTO 1 % (0-2); EOSINOPHILS PERCENT AUTO 4 % (0-6); Hematocrit 29.2 % (33.0-51.0); Hemoglobin 9.6 g/dL (11.5-16.0); IMMATURE GRAN ABSOLUTE AUTO 0.02 K/mm3 (0.00-0.10); IMMATURE GRAN PERCENT AUTO 0 % (0-1); LYMPHOCYTES ABSOLUTE AUTO 1.05 K/mm3 (0.84-5.20); LYMPHOCYTES PERCENT AUTO 14 % (21-46); MONOCYTES ABSOLUTE AUTO 0.92 K/mm3 (0.16-1.47); MONOCYTES PERCENT AUTO 13 % (4-13); Mean Corpuscular HGB 28.6 pg (26.0-34.0); Mean Corpuscular HGB Conc 32.9 g/dL (31.5-36.5); Mean Corpuscular Volume 87 fL (80-100); Mean Platelet Volume 10.2 fL (9.1-12.4); NEUTROPHILS ABSOLUTE AUTO 4.94 K/mm3 (1.96-9.15); NEUTROPHILS PERCENT AUTO 68 % (41-73); Platelet Count 192 K/mm3 (150-400); RDW Coefficient Variation 26.9 % (11.7-14.2); RDW Standard Deviation 81.3 fL (35.1-46.3); Red Blood Cell Count 3.36 M/mm3 (3.80-5.20); White Blood Cell Count 7.28 K/mm3 (4.00-11.30)
[2022-10-22 20:48] LABS: Albumin, Blood 1.8 g/dL (3.4-5.0); Albumin/Globulin Ratio 0.4 (0.8-1.8); Bilirubin, Total 1.1 mg/dL (0.1-1.0); Bun/Creatinine Ratio 18.7 (12.0-20.0); Calcium, Blood 9.1 mg/dL (8.5-10.1); Creatinine, Blood 2.78 mg/dL (0.40-1.00); Globulin, Blood 5.1 g/dL (2.2-4.0); Potassium, Blood 4.4 mmol/L (3.5-5.5); Total Protein, Blood 6.9 g/dL (6.4-8.2)
[2022-10-22 22:04] LABS: International Normalized Ratio 1.54; Prothrombin Time Results 15.7 Sec (9.7-11.5)
--- NOTE | 2022-10-23 00:38 | NUR ---
ADMISSION: PT ARRIVED TO PCU 1 @5404. SLID OVER FROM [facility] VIA FOUR PERSON ASSIST. PT ALERT, ORIENTED TO SELF ONLY. UNABLE TO TELL THIS RN LOCATION, CURRENT PRESIDENT, OR WHERE SHE LIVES, SLOW TO RESPOND. STRENGTH WEAK, EQUAL BILATERALLY. BP SOFT, MAP >65, HR SR 70'S, AFEBRILE, CURRENTLY ON RA, SATURATIONS >96%. LUNG SOUNDS CLEAR IN UPPER, DIM IN BASES, EVEN AND UNLABORED AT REST. +3 EDEMA NOTED IN BLE AND BUE. MUTIPLE BRUISES NOTED IN UPPER EXTREMENTIES. COCCYX WITH REDDEND AREA, MEPILEX IN PLACE. REPOS Q2 TO MAINTAIN SKIN INTEGRITY. PT INC OF BOTH URINE AND BOWEL. PT NOTED TO BE ON MENSTRUAL CYCLE, PUREWICK AND PAD IN PLACE. CALL PLACED OUT TO [facility] FOR PT MED REC AND HISTORY. 22G IN L HAND. MUTIPLE IV ATTEMPTS WERE MADE FOR ADDITONAL IV ACCESS, NOT SUCCESSFUL. WILL ASK FOR POWERGLIDE FROM DAYTIME INDEPENDENT CONSULTANT. BED IN LOW, CALL LIGHT IN REACH, WILL CONTINUE TO MONITOR.
[2022-10-23] MEDS ORDERED: ELIQUIS2.5 MG PO (01:05)
--- NOTE | 2022-10-23 03:01 | NUR ---
UPDATE: CALL PLACED TO DEMAR REGARDING PT VAGINAL BLEEDING. NURSE ON SHIFT STATES THIS IS ABNORMAL FOR PT AND HAS BEEN OCCURING X1 WEEK. CALL PLACED TO .
[2022-10-23 04:07] LABS: BASOPHILS ABSOLUTE AUTO 0.03 K/mm3 (0.00-0.23); BASOPHILS PERCENT AUTO 1 % (0-2); EOSINOPHILS ABSOLUTE AUTO 0.12 K/mm3 (0.00-0.68); EOSINOPHILS PERCENT AUTO 3 % (0-6); Hematocrit 21.8 % (33.0-51.0); Hemoglobin 7.1 g/dL (11.5-16.0); IMMATURE GRAN ABSOLUTE AUTO 0.02 K/mm3 (0.00-0.10); IMMATURE GRAN PERCENT AUTO 0 % (0-1); LYMPHOCYTES ABSOLUTE AUTO 0.79 K/mm3 (0.84-5.20); LYMPHOCYTES PERCENT AUTO 16 % (21-46); MONOCYTES PERCENT AUTO 14 % (4-13); Mean Corpuscular HGB 28.5 pg (26.0-34.0); Mean Corpuscular HGB Conc 32.6 g/dL (31.5-36.5); Mean Corpuscular Volume 88 fL (80-100); NEUTROPHILS PERCENT AUTO 66 % (41-73); Platelet Count 126 K/mm3 (150-400); RDW Coefficient Variation 26.5 % (11.7-14.2); RDW Standard Deviation 80.3 fL (35.1-46.3); Red Blood Cell Count 2.49 M/mm3 (3.80-5.20); White Blood Cell Count 4.86 K/mm3 (4.00-11.30)
--- NOTE | 2022-10-23 04:24 | NUR ---
SHIFT SUMMARY: NO ACUTE CHANGES SINCE ADMISSION. PT REMAINS LETHARGIC, ORIENTED TO SELF. ALBUMIN GTT IN L HAND. CALL PLACED TO MD REGARDING PT VAGINAL BLEEDING, PELVIC ULTRASOUND SCHEDULED FOR AM. PUREWICK REMAINS IN PLACE. PT REPOS Q2 TO MAINTAIN SKIN INTEGRITY. BED IN LOW, CALL LIGHT IN REACH, WILL REPORT TO ONCOMING RN.
[2022-10-23 04:35] LABS: Albumin, Blood 2.7 g/dL (3.4-5.0); Albumin/Globulin Ratio 0.7 (0.8-1.8); Bilirubin, Total 1.2 mg/dL (0.1-1.0); Bun/Creatinine Ratio 19.8 (12.0-20.0); Calcium, Blood 8.9 mg/dL (8.5-10.1); Creatinine, Blood 2.73 mg/dL (0.40-1.00); Globulin, Blood 3.8 g/dL (2.2-4.0); Potassium, Blood 3.6 mmol/L (3.5-5.5); Total Protein, Blood 6.5 g/dL (6.4-8.2)
[2022-10-23 12:42] LABS: Hematocrit 23.2 % (33.0-51.0); Hemoglobin 7.6 g/dL (11.5-16.0)
[2022-10-23 14:46] LABS: Source, Urine Foley catheter
[2022-10-23 15:11] LABS: Appearance, Urine Turbid (Clear); Bilirubin, Urine Neg (Neg); Blood, Urine 2+ (Neg); Color, Urine Yellow (P-Yellow); Glucose Qualitative, Urine 2+ (Neg); Ketones, Urine Neg (Neg); Leukocyte Esterase, Urine 3+ (Neg); Nitrite, Urine Neg (Neg); Protein, Urine Neg (Neg); Urobilinogen, Urine NORM (Normal)
[2022-10-23 15:49] LABS: Bacteria Mod /hpf; Hyaline Casts 0-2 /lpf (0-2); White Blood Cells, Urine 25-50 /hpf (0-5); Yeast/Fungi Urine Many /hpf
[2022-10-23 15:50] LABS: Squamous Epithelial Cells Rare /hpf (Few)
--- NOTE | 2022-10-23 16:38 | NUR ---
Shift Summary Pt alert at times, or wakes easily, pt oriented to self; answers yes/no questions but this afternoon pt answering in 2-5 word sentences. Pt denies pain, chest pain/pressure, sob, dizziness and numb/tingling. Pt reports nasuea, medicated per emar. Pt tele sinus, bp stable with midorine per orders. Spo2 >90% on ra, breathing even and unlabored. Pt able soft, nontender. Vaginal bleeding noted, Dr Doss at bedside, new orders for harris catheter and measuring bleeding; urine specimen sent. Discussed eliquis with Dr Donavan Dr to place orders. Pt is NPO except medications. Other vss. No other acute changes noted. Will continue to monitor.
[2022-10-23 22:05] LABS: Hematocrit 21.3 % (33.0-51.0); Hemoglobin 6.9 g/dL (11.5-16.0)
--- NOTE | 2022-10-23 22:46 | NUR ---
UPDATE H&H 6.9 THIS EVENING, CALL PLACED TO MD. ORDER FOR 1 UNIT PRBC.
--- NOTE | 2022-10-24 00:35 | NUR ---
UPDATE: PT RECEIVING 1 UNIT OF PRBC, TOLERATING WELL. SEE PAPER CHARTING.
--- NOTE | 2022-10-24 05:13 | NUR ---
SHIFT SUMMARY PT REMAINS LETHARGIC, RESPONDS TO VERBAL STIMULI. AT TIMES ABLE TO ANSWER SIMPLE YES OR NO QUESTIONS. BP AND HR STABLE, AFEBRILE, SATS >98% ON ROOM AIR. HGB 6.9 THIS EVENING, PT RECEIVED 1 UNIT OF PRBC, TOLERATED WELL, HGB NOW STABLE. RADER REMAINS IN PLACE, DRAINING YELLOW CLOUDY URINE TO GRAVITY. PT CONTINUES TO HAVE VAGINAL BLEEDING THROUGHOUT THE NIGHT. ATTENDS AND PAD IN PLACE. NO BM. POWERGLIDE PLACED AT START OF SHIFT BY FUNDRAISING CONSULTANT, DRAWS AND FLUSHES. REPOS Q2 TO MAINTAIN SKIN INTEGRITY. BED IN LOW, CALL LIGHT IN REACH, WILL REPORT TO ONCOMING RN.
[2022-10-24 05:28] LABS: Albumin, Blood 3.3 g/dL (3.4-5.0); Albumin/Globulin Ratio 1.2 (0.8-1.8); Bilirubin, Total 1.9 mg/dL (0.1-1.0); Calcium, Blood 8.9 mg/dL (8.5-10.1); Creatinine, Blood 2.36 mg/dL (0.40-1.00); Globulin, Blood 2.8 g/dL (2.2-4.0); Magnesium, Blood 2.3 mg/dL (1.6-2.4); Phosphorus, Blood 3.4 mg/dL (2.5-4.9); Potassium, Blood 3.4 mmol/L (3.5-5.5); Total Protein, Blood 6.1 g/dL (6.4-8.2)
[2022-10-24 07:10] LABS: BASOPHILS ABSOLUTE AUTO 0.02 K/mm3 (0.00-0.23); BASOPHILS PERCENT AUTO 1 % (0-2); EOSINOPHILS ABSOLUTE AUTO 0.09 K/mm3 (0.00-0.68); EOSINOPHILS PERCENT AUTO 2 % (0-6); Hematocrit 20.6 % (33.0-51.0); Hemoglobin 6.9 g/dL (11.5-16.0); IMMATURE GRAN ABSOLUTE AUTO 0.01 K/mm3 (0.00-0.10); IMMATURE GRAN PERCENT AUTO 0 % (0-1); LYMPHOCYTES ABSOLUTE AUTO 0.71 K/mm3 (0.84-5.20); LYMPHOCYTES PERCENT AUTO 19 % (21-46); MONOCYTES ABSOLUTE AUTO 0.55 K/mm3 (0.16-1.47); MONOCYTES PERCENT AUTO 15 % (4-13); Mean Corpuscular HGB 29.4 pg (26.0-34.0); Mean Corpuscular HGB Conc 33.5 g/dL (31.5-36.5); Mean Corpuscular Volume 88 fL (80-100); Mean Platelet Volume 9.5 fL (9.1-12.4); NEUTROPHILS ABSOLUTE AUTO 2.38 K/mm3 (1.96-9.15); NEUTROPHILS PERCENT AUTO 63 % (41-73); Platelet Count 108 K/mm3 (150-400); RDW Coefficient Variation 25.1 % (11.7-14.2); RDW Standard Deviation 78.4 fL (35.1-46.3); Red Blood Cell Count 2.35 M/mm3 (3.80-5.20); White Blood Cell Count 3.76 K/mm3 (4.00-11.30)
[2022-10-24 07:37] LABS: Hematocrit 21.5 % (33.0-51.0); Hemoglobin 7.2 g/dL (11.5-16.0)
--- NOTE | 2022-10-24 07:42 | NUR ---
Am note Pt appears to be sleeping, responding to verbal stimuli,quickly falling back to sleep, no answering any questions.. Pt on bedrest, q2 turn. No s/sx of distress noted at this time. Pt tele sinus 70's, bp soft but stable, edema noted to ble, r>l. Spo2 >94% on ra, breathing even and unlabored. Abd mild distention noted, soft nontender with hypoactive bt. Redness noted to coccyx, draining wounds noted to left hip, and scabs/bruising scattered. Other vss. No other acute changes noted. Will continue to monitor.
[2022-10-24 15:06] LABS: Hematocrit 24.4 % (33.0-51.0)
--- NOTE | 2022-10-24 18:55 | NUR ---
Shift Summary Pt more alert this afternoon. Lift to up in chair. 2 attends changed, only 1 weight. No other acute changes noted. Report given to oncoming rn.
--- NOTE | 2022-10-25 04:15 | NUR ---
SHIFT SUMMARY: PT WITH NO ACUTE CHANGES OVERNIGHT. REMAINS LETHARGIC, AT TIMES ABLE TO ANSWER YES OR NO QUESTIONS, AFEBRILE, BP AND HR STABLE, SATS >96% ON ROOM AIR. PT WITH MINIMAL VAGINAL BLEEDING THIS SHIFT. APPROX 5 GRAMS OUT. RADER CATH REMAINS IN PLACE, PATENT AND DRAINING TO GRAVITY. NO BM THROUGHOUT THE NIGHT. ATTEMDS IN PLACE. BED IN LOW, CALL LIGHT IN REACH, WILL REPORT TO ONCOMING RN.
[2022-10-25 04:35] LABS: Hematocrit 22.7 % (33.0-51.0); Hemoglobin 7.4 g/dL (11.5-16.0); Mean Corpuscular HGB 28.6 pg (26.0-34.0); Mean Corpuscular HGB Conc 32.6 g/dL (31.5-36.5); Mean Corpuscular Volume 88 fL (80-100); Mean Platelet Volume 9.8 fL (9.1-12.4); Platelet Count 114 K/mm3 (150-400); RDW Coefficient Variation 25.2 % (11.7-14.2); RDW Standard Deviation 78.6 fL (35.1-46.3); Red Blood Cell Count 2.59 M/mm3 (3.80-5.20)
[2022-10-25 05:06] LABS: Magnesium, Blood 2.6 mg/dL (1.6-2.4)
[2022-10-25 05:07] LABS: Albumin, Blood 3.7 g/dL (3.4-5.0); Albumin/Globulin Ratio 1.4 (0.8-1.8); Bilirubin, Total 2.3 mg/dL (0.1-1.0); Bun/Creatinine Ratio 22.9 (12.0-20.0); Calcium, Blood 9.5 mg/dL (8.5-10.1); Creatinine, Blood 2.23 mg/dL (0.40-1.00); Globulin, Blood 2.6 g/dL (2.2-4.0); Phosphorus, Blood 2.7 mg/dL (2.5-4.9); Potassium, Blood 3.4 mmol/L (3.5-5.5); Total Protein, Blood 6.3 g/dL (6.4-8.2)
[2022-10-25 10:33] LABS: Source, Urine Foley catheter
[2022-10-25 10:45] LABS: Appearance, Urine Turbid (Clear); Bilirubin, Urine Neg (Neg); Blood, Urine 4+ (Neg); Color, Urine Yellow (P-Yellow); Glucose Qualitative, Urine 3+ (Neg); Ketones, Urine Neg (Neg); Leukocyte Esterase, Urine 3+ (Neg); Nitrite, Urine Pos (Neg); Protein, Urine 3+ (Neg); Urobilinogen, Urine NORM (Normal)
--- NOTE | 2022-10-25 10:49 | NUR ---
Pt resting in bed with her eyes closed. No S/S of distressed noted at time of visit. Spoke with Primary RN Brii and discussed case. Hospitalist would like Palliative Care to speak with family regarding Pt's code status wishes. Mother Trixie also called requesting information but is not on list to provide information. Called and spoke with Pt's Víctor. Provided update and reviewed plan of care. Engaged in therapeutic conversation regarding code status. Educated on life sustaining treatments including risks and implications of CPR. Víctor reports Pt wishes are to be DNR. Offered therapeutic listening and answered questions. Deferred some questions for hospitalist to answer. Discussed Pt's mother Trixie requesting information. Víctor reports mother may have information. Spoke with Dr Medina and discussed case. Placed DNR order for Pt in [facility] per V/O from Dr Medina. Dr Medina reports plan to call spouse and provide update. Palliative Care will remain available for supportive and therapeutic visits.
[2022-10-25 11:29] LABS: White Blood Cells, Urine TNTC /hpf (0-5); Yeast/Fungi Urine Many /hpf
[2022-10-25 11:30] LABS: Bacteria Many /hpf; Squamous Epithelial Cells Few /hpf (Few)
[2022-10-25 13:53] LABS: Hematocrit 23.3 % (33.0-51.0); Hemoglobin 7.7 g/dL (11.5-16.0); Mean Corpuscular HGB 29.1 pg (26.0-34.0); Mean Corpuscular Volume 88 fL (80-100); Mean Platelet Volume 9.8 fL (9.1-12.4); Platelet Count 102 K/mm3 (150-400); RDW Coefficient Variation 25.2 % (11.7-14.2); RDW Standard Deviation 80.2 fL (35.1-46.3); Red Blood Cell Count 2.65 M/mm3 (3.80-5.20); White Blood Cell Count 4.75 K/mm3 (4.00-11.30)
--- NOTE | 2022-10-25 18:25 | NUR ---
SHIFT SUMMARY; ASSUMED CARE AT 0700. LETHARGIC AND DIFFICULT TO ARROUSE AT SHIFT CHANGE. OPENS EYES BUT DOES NOT ANSWER QUESTIONS OR FOLLOW COMMANDS. BP NOTED TO BE SOFT. PROVIDER NOTIFIED AND TO BEDSIDE FOR EVAL. 1 UNIT PRBC TRANSFUSED, 500ML BOLUS GIVEN. BP IMPROVED FOR REMAINDER OF SHIFT. REMAINS LETHARGIC AND UNABLE TO TAKE ANYTHING PO, CANNOT FOLLOW INSTRUCTIONS TO SWALLOW. PROVIDER AWARE. LACTULOSE ORDERED RECTALLY Q6, ADMINISTERED ORDERED. LARGE BM FOLLOWING LACTULOSE ENEMA, BUISING T/O BODY IN MULTIPLE STAGES OF HEALING. Q 2 TURNS, IRMA CARE, CATH CARE AND BEDBATH TODAY, WILL CONTINUE TO MONITOR UNTIL CHANGE OF SHIFT.
[2022-10-25 23:21] LABS: Hematocrit 25.1 % (33.0-51.0); Hemoglobin 8.4 g/dL (11.5-16.0); Mean Corpuscular HGB 29.7 pg (26.0-34.0); Mean Corpuscular HGB Conc 33.5 g/dL (31.5-36.5); Mean Corpuscular Volume 89 fL (80-100); Mean Platelet Volume 9.5 fL (9.1-12.4); Platelet Count 120 K/mm3 (150-400); RDW Coefficient Variation 25.2 % (11.7-14.2); RDW Standard Deviation 80.9 fL (35.1-46.3); Red Blood Cell Count 2.83 M/mm3 (3.80-5.20); White Blood Cell Count 5.93 K/mm3 (4.00-11.30)
[2022-10-26 04:15] LABS: Hematocrit 24.9 % (33.0-51.0); Hemoglobin 8.3 g/dL (11.5-16.0); Mean Corpuscular HGB 29.2 pg (26.0-34.0); Mean Corpuscular HGB Conc 33.3 g/dL (31.5-36.5); Mean Corpuscular Volume 88 fL (80-100); Mean Platelet Volume 9.2 fL (9.1-12.4); Platelet Count 111 K/mm3 (150-400); RDW Coefficient Variation 25.2 % (11.7-14.2); RDW Standard Deviation 79.7 fL (35.1-46.3); Red Blood Cell Count 2.84 M/mm3 (3.80-5.20); White Blood Cell Count 5.42 K/mm3 (4.00-11.30)
--- NOTE | 2022-10-26 04:40 | NUR ---
SHIFT SUMMARY PT'S MENTATION HAS IMPROVED GREATLY. TALKATIVE, APPROPRIATE WITH STAFF WITH SOME FORGETFULNESS. FOLLOWING COMMANDS. TOLERATING PO INTAKE WELL WITHOUT S/SX OF ASPIRATION. LACTULOSE ORDERS CHANGED TO ACCOMMODATE THIS. VSS. ON RA. BM'S APPROPRIATE WITH LACTULOSE. VAGINAL BLEEDING CONTINUES, REQUIRING CHANGING PADS Q4HRS. RADER PATENT, OUTPUT LESS CLOUDY. BLOOD SUGARS STABLE FOLLOWING RESUMED PO INTAKE AND 500ML D5 ADMINISTRATION. OTHERWISE, PT BEING REPOSITIONED. POWERGLIDE PATENT. BED ALARM ON.
[2022-10-26 05:25] LABS: Albumin, Blood 3.2 g/dL (3.4-5.0); Albumin/Globulin Ratio 1.1 (0.8-1.8); Bilirubin, Total 2.8 mg/dL (0.1-1.0); Calcium, Blood 9.3 mg/dL (8.5-10.1); Creatinine, Blood 1.88 mg/dL (0.40-1.00); Globulin, Blood 2.9 g/dL (2.2-4.0); Magnesium, Blood 2.6 mg/dL (1.6-2.4); Phosphorus, Blood 2.3 mg/dL (2.5-4.9); Potassium, Blood 3.2 mmol/L (3.5-5.5); Total Protein, Blood 6.1 g/dL (6.4-8.2)
--- NOTE | 2022-10-26 16:03 | NUR ---
SHIFT SUMMARY PT ORIENTATION CONTINUING TO IMPROVE. PT ORIENTED TO SELF, FAMILY, SITUATION, AND DATE, BUT OCCASIONALLY STILL CONFUSED AND HAS SOME DIFFICULTY FORMING WORDS. PT HAS BEEN FATIGUED BUT IS WAKING UP AND RESPONDING APPROPRIATELY. PT TRANSFERED TO MED NO TELE STATUS TODAY. PT HR WAS IN THE 80'S, NSR, PRIOR TO DC OF TELE. PT BP STABLE WITH MIDODRINE TID. SPO2 >92% ON RA. RESPIRATIONS EVEN AND UNLABORED. PT STILL HAVING VAGINAL BLEEDING, BUT MINIMAL IN AMOUNT. ONE BRIEF HAD BLOOD NOTED ON IT, BRIEF WAS NOT SATURATED WITH BLOOD. PT HAD ONE LOOSE BM THIS AFTERNOON. RADER IN PLACE DRAINING TO GRAVITY, WITH YELLOW URINE. PT WAS NAUSEATED WITH BREAKFAST AND LUNCH AND DID NOT EAT MUCH. PT WAS ABLE TO TAKE THE PO LACTULOSE, BUT STILL HAD DIFFICULTY TO NAUSEA. PT MEDICATED WITH ZOFRAN PER EMAR WITH TEMPORARY RELIEF. PT HAS POTASSIUM PHOSPHATE INFUSING IN THE FRANC[place]. PT REPOSITIONED Q2H TO MAINTAIN SKIN INTEGRITY. PT ALSO RECEIVED BED BATH TODAY. WILL CONTINUE TO CARE FOR PT AND REPORT TO ONCOMING RN.
[2022-10-27 03:31] LABS: Hematocrit 26.1 % (33.0-51.0); Hemoglobin 8.8 g/dL (11.5-16.0); Mean Corpuscular HGB 29.6 pg (26.0-34.0); Mean Corpuscular HGB Conc 33.7 g/dL (31.5-36.5); Mean Corpuscular Volume 88 fL (80-100); Mean Platelet Volume 9.9 fL (9.1-12.4); Platelet Count 117 K/mm3 (150-400); RDW Standard Deviation 78.5 fL (35.1-46.3); Red Blood Cell Count 2.97 M/mm3 (3.80-5.20); White Blood Cell Count 6.51 K/mm3 (4.00-11.30)
[2022-10-27 03:54] LABS: Magnesium, Blood 2.4 mg/dL (1.6-2.4)
[2022-10-27 03:55] LABS: Albumin, Blood 3.3 g/dL (3.4-5.0); Albumin/Globulin Ratio 1.1 (0.8-1.8); Bilirubin, Total 2.5 mg/dL (0.1-1.0); Bun/Creatinine Ratio 22.1 (12.0-20.0); Calcium, Blood 9.2 mg/dL (8.5-10.1); Creatinine, Blood 1.81 mg/dL (0.40-1.00); Globulin, Blood 2.9 g/dL (2.2-4.0); Phosphorus, Blood 2.6 mg/dL (2.5-4.9); Potassium, Blood 3.4 mmol/L (3.5-5.5); Total Protein, Blood 6.2 g/dL (6.4-8.2)
--- NOTE | 2022-10-27 06:02 | NUR ---
SHIFT SUMMARY PATIENT ALERT AND ORIENTED X2. WAS DROWSY AND SLOW TO RESPOND AT BEGINNING OF SHIFT, BECAME MORE AWAKE AND ALERT THE NIGHT WENT ON. PATIENT CURRENTLY SLEEPING. PATIENT CONTINUES ON BEDREST THIS IS HER BASELINE. VITAL SIGNS STABLE. LUNG SOUNDS DIMINISHED IN THE BASES. 3+ EDEMA IN BILATERAL LOWER EXTREMITES. RADER IS PATENT AND DRAINING TO GRAVITY. ATTENDS IN PLACE FOR STOOL INCONTINENCE. SMALL AMOUNT OF VAGINAL BLEEDING NOTED IN PATIENT'S BRIEF. NO ACUTE ISSUES NOTED OVERNIGHT. WILL CONTINUE TO MONITOR. CALL LIGHT WITHIN REACH.
--- NOTE | 2022-10-27 08:00 | NUR ---
ASSUMED CARE PT ALERT AND ANSWERING MOST QUESTIONS APPROPRIATELY THIS AM. PT. CURRENTLY ON RA, VSS THIS AM. PT. NEEDS ASSISTANCE REPOSITIONING IN BED. IVS IN PLACE, SALINE LOCKED. RADER DRAINING TO GRAVITY FOR STRICT I&O. CALL LIGHT IN REACH.
[2022-10-27 12:59] LABS: SARS-Cov-2 (COVID-19) PCR, MMC NEGATIVE (NEGATIVE)
--- NOTE | 2022-10-27 18:21 | NUR ---
SHIFT SUMMARY PT. REMAINS ALERT T/O DAY ANSWERING QUESTIONS APPROPRIATELY. PLANS FOR PT TO DC TO [facility] TOMORROW. VSS T/O SHIFT. PT. TOLERATED PO LACUTLOSE INTAKE T/O DAY. CONTINUES TO HAVE VAGINAL BLEEDING. RADER IN PLACE DRAINING TO GRAVITY. REPORT TO ONCOMING RN.
--- NOTE | 2022-10-28 06:07 | NUR ---
SHIFT SUMMARY PATIENT ALERT AND ORIENTED X3. HAD NO COMPLAINTS OF PAIN OR SHORTNESS OF BREATH. PATIENT ALERT AND SPEAKING CLEARLY ALL NIGHT. MEDICATED PER EMAR FOR NAUSEA. RADER PATENT AND DRAINING TO GRAVITY. VAGINAL BLEEDING SEEMS TO BE INCREASED FROM YESTERDAY. NO ACUTE ISSUES NOTED OVERNIGHT. CALL LIGHT WITHIN REACH.
[2022-10-28 08:09] LABS: Bun/Creatinine Ratio 20.5 (12.0-20.0); Creatinine, Blood 1.85 mg/dL (0.40-1.00); Magnesium, Blood 2.5 mg/dL (1.6-2.4); Phosphorus, Blood 2.6 mg/dL (2.5-4.9); Potassium, Blood 3.2 mmol/L (3.5-5.5)
--- NOTE | 2022-10-28 17:42 | NUR ---
SHIFT SUMMARY PT REMAINS AWAKE AND ALERT. PT IS FORGETFUL AT TIMES, BUT ANSWERS MOST QUESTIONS APPROPRIATELY. BP STABLE. O2 SATS REMAIN ABOVE 90% ON RA. PT DENIES ANY PAIN. PT HAD GOOD URINE OUTPUT VIA RADER CATHETER. NO BM THIS SHIFT. PT COMPLAINED OF NAUSEA WITH LACTULOSE AND MEDICATED PER EMAR. PT REPOSITIONED Q2H AND MORE FREQUENTLY NEEDED. WILL CONTINUE TO MONITOR AND REPORT TO ONCOMING RN
[2022-10-29 04:22] LABS: BASOPHILS ABSOLUTE AUTO 0.04 K/mm3 (0.00-0.23); BASOPHILS PERCENT AUTO 1 % (0-2); EOSINOPHILS ABSOLUTE AUTO 0.28 K/mm3 (0.00-0.68); EOSINOPHILS PERCENT AUTO 4 % (0-6); Hematocrit 26.8 % (33.0-51.0); IMMATURE GRAN ABSOLUTE AUTO 0.02 K/mm3 (0.00-0.10); IMMATURE GRAN PERCENT AUTO 0 % (0-1); LYMPHOCYTES ABSOLUTE AUTO 1.03 K/mm3 (0.84-5.20); LYMPHOCYTES PERCENT AUTO 15 % (21-46); MONOCYTES ABSOLUTE AUTO 0.99 K/mm3 (0.16-1.47); MONOCYTES PERCENT AUTO 15 % (4-13); Mean Corpuscular HGB 30.2 pg (26.0-34.0); Mean Corpuscular HGB Conc 33.6 g/dL (31.5-36.5); Mean Corpuscular Volume 90 fL (80-100); Mean Platelet Volume 9.7 fL (9.1-12.4); NEUTROPHILS ABSOLUTE AUTO 4.46 K/mm3 (1.96-9.15); NEUTROPHILS PERCENT AUTO 65 % (41-73); Platelet Count 132 K/mm3 (150-400); RDW Coefficient Variation 24.2 % (11.7-14.2); RDW Standard Deviation 78.1 fL (35.1-46.3); Red Blood Cell Count 2.98 M/mm3 (3.80-5.20); White Blood Cell Count 6.82 K/mm3 (4.00-11.30)
[2022-10-29 04:56] LABS: Albumin, Blood 3.2 g/dL (3.4-5.0); Bilirubin, Total 2.5 mg/dL (0.1-1.0); Bun/Creatinine Ratio 18.2 (12.0-20.0); Creatinine, Blood 1.87 mg/dL (0.40-1.00); Globulin, Blood 3.3 g/dL (2.2-4.0); Potassium, Blood 3.5 mmol/L (3.5-5.5); Total Protein, Blood 6.5 g/dL (6.4-8.2)
--- NOTE | 2022-10-29 06:01 | NUR ---
SHIFT SUMMARY PATIENT ALERT AND ORIENTED X3. PATIENT HAD NO COMPLAINTS OF PAIN OR SHORTNESS OF BREATH. PATIENT'S MENTATION AND SPEECH WAS CLEAR. VITAL SIGNS STABLE. NO ACUTE ISSUES NOTED OVERNIGHT. CALL LIGHT WITHIN REACH.
[2022-10-29 10:06] LABS: SARS-Cov-2 (COVID-19) PCR, MMC NEGATIVE (NEGATIVE)
[2022-10-29] MEDS ORDERED: LEVFLO500 PO (10:31)
[2022-10-29] MEDS ORDERED: VISBIOME 112.51 EACH PO (10:32)
[2022-10-29] MEDS ORDERED: MEDR10 PO (10:32)
[2022-10-29] MEDS ORDERED: METO25ER PO (10:33)
--- NOTE | 2022-10-29 11:10 | NUR ---
UPDATE PT REMAINS ALERT AND ORIENTED. VS STABLE. PLAN TO DC BACK TO [facility] AT 1200 TODAY. REPORT CALLED TO [facility]. PT PROVIDED BED BATH AND RADER REMOVED. PT TO BE TAKEN BY [facility] AT 1200.
--- NOTE | 2022-10-29 12:45 | NUR ---
UPDATE PT TAKEN OUT ON GURNEY BY TRANSPORT
== END 2022-10-29 12:18 | DRG 442 ==
LOC: ER 18:39 → PCU 18:40
PROVIDERS: Emergency Medicine; Family Medicine; Student in an Organized Health Care Education/Training Program; ADMIT Internal Medicine
PROC: 30233N1 Transfusion of Nonautologous Red Blood Cells into Peripheral Vein, Percutaneous Approach (ICD-10-PCS; principal; 2022-10-23)
DX: K76.82 Hepatic encephalopathy (principal); I13.0 Hypertensive heart and chronic kidney disease with heart failure and stage 1 through stage 4 chronic kidney disease, or unspecified chronic kidney disease; N17.9 Acute kidney failure, unspecified; N39.0 Urinary tract infection, site not specified; I85.10 Secondary esophageal varices without bleeding; I50.32 Chronic diastolic (congestive) heart failure; Z68.41 Body mass index [BMI] 40.0-44.9, adult; J45.909 Unspecified asthma, uncomplicated; I48.91 Unspecified atrial fibrillation; K74.60 Unspecified cirrhosis of liver; Z66 Do not resuscitate; E87.6 Hypokalemia; E66.9 Obesity, unspecified; N18.32 Chronic kidney disease, stage 3b; E11.22 Type 2 diabetes mellitus with diabetic chronic kidney disease; N95.0 Postmenopausal bleeding; K75.81 Nonalcoholic steatohepatitis (NASH); K31.819 Angiodysplasia of stomach and duodenum without bleeding; E11.649 Type 2 diabetes mellitus with hypoglycemia without coma; D63.1 Anemia in chronic kidney disease; I45.4 Nonspecific intraventricular block; B96.1 Klebsiella pneumoniae [K. pneumoniae] as the cause of diseases classified elsewhere; Z20.822 Contact with and (suspected) exposure to COVID-19; B96.89 Other specified bacterial agents as the cause of diseases classified elsewhere; Z88.8 Allergy status to other drugs, medicaments and biological substances; Z91.040 Latex allergy status; Z79.899 Other long term (current) drug therapy; Z88.2 Allergy status to sulfonamides; Z79.01 Long term (current) use of anticoagulants; Z88.5 Allergy status to narcotic agent; Z91.013 Allergy to seafood; Z91.041 Radiographic dye allergy status; Z79.4 Long term (current) use of insulin; Z79.02 Long term (current) use of antithrombotics/antiplatelets; Z79.51 Long term (current) use of inhaled steroids; Z79.2 Long term (current) use of antibiotics; Z98.890 Other specified postprocedural states; Z96.651 Presence of right artificial knee joint; Z90.49 Acquired absence of other specified parts of digestive tract; Z87.891 Personal history of nicotine dependence; Z79.52 Long term (current) use of systemic steroids; Z98.84 Bariatric surgery status
CPT/HCPCS: 36415; 36430; 51702; 80048; 80053; 81001; 82140; 82947; 83735; 84100; 84132; 85014; 85018; 85025; 85027; 85610; 86850; 86900; 86901; 86923; 87077; 87086; 87186; 94640; 94664; 94760; 94762; 96374; 96376; 97110; 97162; 97166; 99285-25; A9270; C9113; G0378; J0696; J1815; J2405; J3480; J7040; J7050; J7060; P9016; P9046; P9047; U0004

== ENCOUNTER → 2022-10-22 | Outpatient (CLI) | payer OTHER ==
[2022-10-22 13:49] LABS: Hematocrit 26.9 % (33.0-51.0); Hemoglobin 8.8 g/dL (11.5-16.0); Mean Corpuscular HGB 28.8 pg (26.0-34.0); Mean Corpuscular HGB Conc 32.7 g/dL (31.5-36.5); Mean Corpuscular Volume 88 fL (80-100); Mean Platelet Volume 9.8 fL (9.1-12.4); Platelet Count 156 K/mm3 (150-400); RDW Standard Deviation 82.9 fL (35.1-46.3); Red Blood Cell Count 3.06 M/mm3 (3.80-5.20); White Blood Cell Count 6.68 K/mm3 (4.00-11.30)
[2022-10-22 13:53] LABS: Albumin, Blood 1.8 g/dL (3.4-5.0); Albumin/Globulin Ratio 0.4 (0.8-1.8); Bun/Creatinine Ratio 19.2 (12.0-20.0); Creatinine, Blood 2.92 mg/dL (0.40-1.00); Globulin, Blood 4.9 g/dL (2.2-4.0); Potassium, Blood 4.6 mmol/L (3.5-5.5); Total Protein, Blood 6.7 g/dL (6.4-8.2)
== END ==
LOC: EDSTATUS 09:45 → LAB RH 12:57
PROVIDERS: Internal Medicine
DX: I12.9 Hypertensive chronic kidney disease with stage 1 through stage 4 chronic kidney disease, or unspecified chronic kidney disease (principal); D63.1 Anemia in chronic kidney disease; N18.9 Chronic kidney disease, unspecified; K75.89 Other specified inflammatory liver diseases; K76.0 Fatty (change of) liver, not elsewhere classified
CPT/HCPCS: 80053; 82140; 85027

== ENCOUNTER → 2022-11-01 | Outpatient (CLI) | payer OTHER ==
[~2022-11-01] MED LIST changes: +ELIQUIS2.5 MG PO; +LEVFLO500 PO; +MEDR10 PO; +METO25ER PO; +VISBIOME 112.51 EACH PO
[2022-11-01 15:32] LABS: BASOPHILS ABSOLUTE AUTO 0.04 K/mm3 (0.00-0.23); BASOPHILS PERCENT AUTO 1 % (0-2); EOSINOPHILS ABSOLUTE AUTO 0.13 K/mm3 (0.00-0.68); EOSINOPHILS PERCENT AUTO 2 % (0-6); Hematocrit 31.5 % (33.0-51.0); Hemoglobin 10.5 g/dL (11.5-16.0); IMMATURE GRAN ABSOLUTE AUTO 0.03 K/mm3 (0.00-0.10); IMMATURE GRAN PERCENT AUTO 0 % (0-1); LYMPHOCYTES ABSOLUTE AUTO 1.12 K/mm3 (0.84-5.20); LYMPHOCYTES PERCENT AUTO 16 % (21-46); MONOCYTES PERCENT AUTO 16 % (4-13); Mean Corpuscular HGB 29.7 pg (26.0-34.0); Mean Corpuscular HGB Conc 33.3 g/dL (31.5-36.5); Mean Corpuscular Volume 89 fL (80-100); Mean Platelet Volume 9.9 fL (9.1-12.4); NEUTROPHILS ABSOLUTE AUTO 4.45 K/mm3 (1.96-9.15); NEUTROPHILS PERCENT AUTO 65 % (41-73); Platelet Count 173 K/mm3 (150-400); RDW Standard Deviation 75.9 fL (35.1-46.3); Red Blood Cell Count 3.53 M/mm3 (3.80-5.20); White Blood Cell Count 6.87 K/mm3 (4.00-11.30)
[2022-11-01 15:55] LABS: Albumin, Blood 3.2 g/dL (3.4-5.0); Albumin/Globulin Ratio 0.9 (0.8-1.8); Bilirubin, Total 3.1 mg/dL (0.1-1.0); Bun/Creatinine Ratio 17.2 (12.0-20.0); Creatinine, Blood 1.74 mg/dL (0.40-1.00); Globulin, Blood 3.7 g/dL (2.2-4.0); Total Protein, Blood 6.9 g/dL (6.4-8.2)
== END ==
LOC: EDSTATUS 09:46 → LAB RH 14:58
PROVIDERS: Internal Medicine
DX: K76.0 Fatty (change of) liver, not elsewhere classified (principal); I12.9 Hypertensive chronic kidney disease with stage 1 through stage 4 chronic kidney disease, or unspecified chronic kidney disease; D63.8 Anemia in other chronic diseases classified elsewhere
CPT/HCPCS: 80053; 82140; 85025

== ENCOUNTER 2022-11-04 09:30 | Emergency (ER) | payer OTHER ==
[~2022-11-04] VITALS: Ht 172.7 cm; Wt 136.1 kg
[2022-11-04 10:25] LABS: BASOPHILS ABSOLUTE AUTO 0.05 K/mm3 (0.00-0.23); BASOPHILS PERCENT AUTO 1 % (0-2); EOSINOPHILS ABSOLUTE AUTO 0.18 K/mm3 (0.00-0.68); EOSINOPHILS PERCENT AUTO 4 % (0-6); Hematocrit 35.2 % (33.0-51.0); Hemoglobin 11.4 g/dL (11.5-16.0); IMMATURE GRAN ABSOLUTE AUTO 0.02 K/mm3 (0.00-0.10); IMMATURE GRAN PERCENT AUTO 0 % (0-1); LYMPHOCYTES ABSOLUTE AUTO 1.17 K/mm3 (0.84-5.20); LYMPHOCYTES PERCENT AUTO 23 % (21-46); MONOCYTES ABSOLUTE AUTO 0.87 K/mm3 (0.16-1.47); MONOCYTES PERCENT AUTO 17 % (4-13); Mean Corpuscular HGB 29.2 pg (26.0-34.0); Mean Corpuscular HGB Conc 32.4 g/dL (31.5-36.5); Mean Corpuscular Volume 90 fL (80-100); Mean Platelet Volume 9.4 fL (9.1-12.4); NEUTROPHILS ABSOLUTE AUTO 2.92 K/mm3 (1.96-9.15); NEUTROPHILS PERCENT AUTO 56 % (41-73); Platelet Count 149 K/mm3 (150-400); RDW Coefficient Variation 22.2 % (11.7-14.2); RDW Standard Deviation 73.1 fL (35.1-46.3); White Blood Cell Count 5.21 K/mm3 (4.00-11.30)
[2022-11-04 10:42] LABS: Albumin, Blood 3.2 g/dL (3.4-5.0); Albumin/Globulin Ratio 0.7 (0.8-1.8); Bilirubin, Total 3.6 mg/dL (0.1-1.0); Bun/Creatinine Ratio 19.3 (12.0-20.0); Calcium, Blood 9.4 mg/dL (8.5-10.1); Creatinine, Blood 1.61 mg/dL (0.40-1.00); Globulin, Blood 4.4 g/dL (2.2-4.0); Potassium, Blood 3.2 mmol/L (3.5-5.5); Total Protein, Blood 7.6 g/dL (6.4-8.2)
[2022-11-04 11:34] LABS: Source, Urine Voided
[2022-11-04 11:37] LABS: Appearance, Urine Hazy (Clear); Bilirubin, Urine Neg (Neg); Blood, Urine 4+ (Neg); Color, Urine Yellow (P-Yellow); Glucose Qualitative, Urine 3+ (Neg); Ketones, Urine Neg (Neg); Leukocyte Esterase, Urine Neg (Neg); Nitrite, Urine Neg (Neg); Protein, Urine 1+ (Neg); Specific Gravity, Urine 1.025 (1.003-1.022); Urobilinogen, Urine 2+ (Normal)
[2022-11-04 11:45] LABS: Bacteria Many /hpf; Hyaline Casts 50-100 /lpf (0-2)
[2022-11-04 11:47] LABS: Squamous Epithelial Cells Mod /hpf (Few); Transitional Epithelial Cells Rare /hpf (0-Rare); White Blood Cells, Urine 0-2 /hpf (0-5)
[2022-11-04 11:49] LABS: Mucus Light (0-Heavy)
== END 2022-11-04 14:52 | disposition home or self-care (01) ==
LOC: ER 09:30
PROVIDERS: Emergency Medicine
DX: E72.29 Other disorders of urea cycle metabolism (principal); E11.22 Type 2 diabetes mellitus with diabetic chronic kidney disease; I13.0 Hypertensive heart and chronic kidney disease with heart failure and stage 1 through stage 4 chronic kidney disease, or unspecified chronic kidney disease; N18.9 Chronic kidney disease, unspecified; I50.30 Unspecified diastolic (congestive) heart failure; Z91.040 Latex allergy status; Z88.5 Allergy status to narcotic agent; Z88.2 Allergy status to sulfonamides; Z91.013 Allergy to seafood; Z79.899 Other long term (current) drug therapy; Z87.891 Personal history of nicotine dependence
CPT/HCPCS: 36415; 51701; 80053; 81001; 82140; 83690; 85025; 87077; 87086; 87186; 99285; A9270